=== PATIENT | male | born 1955 | race Caucasian/White ===

== ENCOUNTER 2023-08-13 15:55 | Inpatient (IN) | payer MEDICARE, OTHER, SELFPAY ==
[2023-08-13] VITALS (46 sets, daily range): BP systolic 65–121; BP diastolic 34–79; BMI 18.4
[2023-08-13 10:15] LABS: Glucose - Point of Care 118 mg/dl (70-99)
[2023-08-13 10:39] LABS: Hematocrit 23.3 % (39.0-52.0); Hemoglobin 7.6 g/dL (13.0-18.0); Mean Corp Hgb Conc. 32.6 g/dL (33.0-37.0); Mean Corpuscular Hgb 26.5 pg (27.0-31.0); Mean Corpuscular Volume 81.2 fL (80.0-94.0); Mean Platelet Volume 9.1 fL (7.4-10.4); Platelet Count 717 10^3/uL (130-400); Red Blood Cell Count 2.87 10^6/uL (4.70-6.10); White Blood Cell Count 12.8 10^3/uL (4.8-10.8)
[2023-08-13] MEDS: KEPPRA 1000 MG IV (11:17)
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
--- NOTE | 2023-08-13 12:33 | CON.NEURO4 ---
Consultation - Neurology 4
-
CONSULTING PHYSICIAN: Shiela Albert
REFERRING PHYSICIAN: ER
DICTATED BY: Shiela Albert
DATE/TIME OF REQUEST: 08/13/22
DATE/TIME OF CONSULTATION: 08/13/22
Reason for Consultation: 2 seizures
History of Present Illness:
Patient is a 68-year-old male with a past medical history of intellectual disability, schizophrenia, status post Bronwyn procedure after megacolon constipation presented hospital with 2 distinct episodes of new onset generalized seizure.
Patient had been at baseline health and mental status and was observed by staff at [facility] to have episode of transient generalized shaking associated with unconsciousness with eyes open which aborted spontaneously after few minutes. He
returned to baseline mental status and then had another seizure later in the morning of similar-appearing spontaneously aborted.
No history of seizures previously. CT head noncontrast in the ED was unremarkable. Blood glucose check at 118. Afebrile with no recent febrile illnesses. At baseline patient is communicative and carry on simple conversations. He was given one
1000 mg dose of IV Levetiracetam in the ED.
Home medication list includes haloperidol as well as valproic acid presumably for schizophrenia and mood stabilization.
Patient is awake and communicative denies any pain at this time, limited history due to intellectual disability.
Past Medical History: Schizophrenia, intellectual disability, GERD, GI bleed, bowel obstruction, constipation and megacolon requiring Bronwyn procedure
Surgical History: Bilateral brachial plexoplsty, Bronwyn procedure
Family History: Unknown
Social History: residential resident, no tobacco, alcohol, or recreational drugs
Review of Symptoms:
Unable to obtain with patient mental status
Physical Exam:
Middle-age man appears older than stated age appears chronically ill, no trauma to the head or neck, no tongue laceration is seen, eyes are clear, neck is supple with no meningismus no neck masses, heart rate regular, breathing unlabored, abdomen
soft nontender, no lower extremity edema or rashes seen, low muscle tone throughout.
Neurologic Examination:
Patient is awake and alert he tends to interact with the examiner, can answer some basic questions, moderate to severe intellectual disability is apparent, he obeys simple commands inconsistently, exclaims due to examiners cold hands and touching of
the feet.
Cranial nerve examination shows pupils 3 to 4 mm equal round reactive light bilaterally, resting gaze midline extraocular movements are normal, no ptosis, there is mild dysarthria, tongue is midline, smile symmetric.
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
Unobtainable reflexes throughout
Gait examination deferred
Neuro Imaging: CT head non contrast unremarkable
Impressions
1. 2 episodes of likely generalized tonic-clonic seizure today, concerning for new diagnosis of epilepsy. Antipsychotics may low seizure threshold but with 2 seizures and his history of intellectual disability I feel patient has a seizure
recurrence risk that is high enough to warrant a diagnosis of epilepsy and [facility] anti seizure medications.
2. History of schizophrenia, is on antipsychotic as well as valproic acid at baseline.
3. History of baseline intellectual disability
Recommendations:
1. This given 2 seizures and complicated medical history would err on the side of caution and observe him overnight.
2. Give valproic acid 500 mg once IV now, start on 500 mg p.o. valproic acid twice daily tonight
3. Check serum valproic acid level as he is on it at home presumably for either schizophrenia or mood stabilization
4. Check routine EEG tomorrow
5. Neurologic checks and seizure precautions
6. Basic blood work checking electrolytes including magnesium and calcium
7. No changes recommended to home antipsychotic regimen at this time
8. Would not require inpatient MRI brain which can be deferred to the outpatient setting
9. Will require outpatient neurology follow-up in approximately 4 to 6 weeks
Discussed patient care with: Dr Castro
[2023-08-13] MEDS: DEPACON 55 MG IV (13:28)
--- NOTE | 2023-08-13 13:39 | HPS.HSE ---
Addendum entered and electronically signed by Jens Lopez MD 08/13/23 20:43:
I spoke to the patient in the presence of patient's nurse about the fact that the patient needs blood; patient communicated that yes, he is okay with receiving blood; risks and benefits were explained and patient signed blood consent form, in the
presence of patient's nurse. Will recheck CBC now and if less than 7 the blood will need to be started.
Addendum entered and electronically signed by Jens Lopez MD 08/13/23 17:54:
I also ordered a CTA Abdomen Pelvis to check for active bleeding
Addendum entered and electronically signed by Jens Lopez MD 08/13/23 17:50:
Patient's repeat Hgb came back at 6.2. I ordered 1 unit PRBCs. BP is still low with SBP in the 80s (even after the IV fluid boluses), so Levophed also ordered. I consulted Colorectal Surgery given patient's recent abdominal surgery, and also
consulted Gastroenterology.
Addendum entered and electronically signed by Jens Lopez MD 08/13/23 17:24:
I also spoke (over the phone) to staff at [facility] and they said no family has come by to see the patient, and they don't have any way to touch base with the family.
Addendum entered and electronically signed by Jens Lopez MD 08/13/23 17:23:
I tried to reach patient's family - the current authorized contacts on the patient's chart - Odalis Roe and Gretel Willis - at the respective phone numbers that were listed however Odalis's listed number was busy/not working when I attempted to call
and when I called Gretel's number, I could not reach her as the person on the other end said Gretel is not available/does not work here anymore.
Patient is not able to give blood consent so if a repeat CBC shows Hgb less than 7 will need to order PRBCs.
Addendum entered and electronically signed by Jens Lopez MD 08/13/23 16:12:
Also ordered EKG, troponins, urinalysis with reflex to culture and CXR.
Original Note:
Family Physician
-
Family Physician: Igor Raza, DO
Chief Complaint
-
Seizure Episodes this Morning
History of Present Illness
68 y/o male with past medical history of urinary tract infection, severe constipation, fecal disimpaction, flexible sigmoidoscopy, open partial colectomy, end colostomy (Degroot's procedure after megacolon constipation) on 07/31/23, schizophrenia,
intellectual disability, chronic anemia, benign prostatic hyperplasia, nephrolithiasis and gastroesophageal reflux disease and bilateral brachial plexoplasty, presented after witnessed seizures x2 episodes at his assisted earlier this morning.
Patient had generalized shaking, along with unconsciousness. The seizures resolved spontaneously.
Patient was recently hospitalized from August 05, 2023 to August 06, 2023 after being admitted for stool leakage from his ostomy, at the nursing facility the ostomy bag apparently was not fully sealed, stool leaked all over the patient's abdomen,
after he was cleaned up, there was some erythema around his surgical site. He was started on intravenous Vancomycin, Levaquin, Flagyl, and ss per infectious disease patient was medically stable for discharge on 10 further days of Levaquin and
Flagyl.
Medical History
Past Medical History
Past Medical History: Reports Other (As per HPI above)
Past Surgical History: Reports Other (Marcin brachial plexoplasty. Bronwyn procedure.)
Social History
Tobacco: Non-smoker
Alcohol: None
Drug: None
Family History
Family History: Not pertinent
Allergies / Home Medications
Allergies reflects when Allergies were last updated in [facility].
Home Medications with original date entered in [facility]
Allergy/Medication List:
Allergies
Allergy/AdvReac Type Severity Reaction Status Date / Time
Carbapenems [Carbapenem] Allergy Unknown Verified 08/13/23 10:12
Cephalosporins Allergy Unknown - Verified 08/13/23 10:12
beta
lactams
Penicillins Allergy Unknown - Verified 08/13/23 10:12
beta
lactams
trifluoperazine HCl Allergy Unknown Verified 08/13/23 10:12
[From Stelazine]
Home Medications
bisacodyl 10 mg rectal suppository (OneLAX Bisacodyl) 10 mg AK DAILYPRN PRN constipation 10/01/17
acetaminophen 325 mg tablet 650 mg PO Q4HPRN PRN mild pain, fever>100 12/24/17
aluminum-mag hydroxide-simethicone 400 mg-400 mg-40 mg/5 mL oral susp (Maalox Maximum Strength) 10 ml PO [id number] PRN indigestion 06/20/22
famotidine 20 mg tablet 20 mg PO DAILY Gastrointestinal issue 06/20/22
lidocaine 4 % topical patch 1 patch topical DAILYPRN PRN to lower back for mild pain 06/20/22
magnesium hydroxide 400 mg/5 mL oral suspension (Milk of Magnesia) 30 ml PO DAILYPRN PRN constipation 06/20/22
sennosides 8.6 mg tablet (Senokot) 17.2 mg PO DAILYPRN PRN constipation 06/20/22
sodium phosphates 19 gram-7 gram/118 mL enema (Fleet Enema) 118 ml AK DAILYPRN PRN constipation 06/20/22
sorbitol 70 % solution 30 ml PO DAILYPRN PRN if no bm by 3rd day 06/20/22
gabapentin 300 mg capsule 300 mg PO Q12H Mental Health/Anxiety 01/08/23
haloperidol lactate 2 mg/mL oral concentrate 10 mg PO BID SCHIZOPHRENIA 01/08/23
ketoconazole 2 % topical cream 1 applic topical BID face 01/08/23
mirtazapine 15 mg tablet 15 mg PO HS Mental Health/Anxiety 01/08/23
sennosides 8.6 mg-docusate sodium 50 mg tablet (Senna-S) 2 tab-cap PO HS Constipation 01/08/23
zinc oxide 40 % topical ointment 1 applic topical BID sacrum 01/08/23
haloperidol lactate 5 mg/mL injection solution 10 mg IM [id number] PRN schizophrenia 06/01/23
ketoconazole 2 % shampoo 1 applic topical MOTH SCALP 06/01/23
pantoprazole 40 mg granules delayed-release for susp in packet 40 mg PO DAILY GERD 06/01/23
valproic acid (as sodium salt) 250 mg/5 mL oral solution 250 mg PO BID SCHIZOPHRENIA 06/01/23
haloperidol decanoate 50 mg/mL intramuscular solution 125 mg IM Q21D SCHIZOPHRENIA 07/28/23
sodium phosphates 19 gram-7 gram/118 mL enema (Fleet Enema) 118 ml AK FR Constipation 07/28/23
Lorazepam 0.5mg/0.5ml Gel 1 applic topical Q6HPRN PRN agitation 08/05/23
levofloxacin 500 mg tablet 500 mg PO DAILY 10 days #10 tabs 08/06/23
lorazepam 0.5 mg tablet 0.5 mg PO Q8HPRN PRN anxiety #3 tabs 08/06/23
lorazepam 1 mg tablet 1 mg PO BID #3 tabs 08/06/23
metronidazole 500 mg tablet 500 mg PO Q8H 08/13/23
polyethylene glycol 3350 17 gram oral powder packet (Miralax) 17 g PO DAILY 08/13/23
Review of Systems
-
Unable to obtain full review of systems at this time due to: Other (Poor historian, was not able to properly respond to Review of Systems questions)
Physical Exam
Vital Signs
Vital Signs
Temp Pulse Resp BP Pulse Ox
98.8 F 73 20 86/51 97
08/13/23 10:13 08/13/23 12:00 08/13/23 12:00 08/13/23 12:00 08/13/23 12:00
Physical Exam
General: No Apparent Distress and Appears Chronically Ill
HEENT: NormoCephalic
Respiratory: Clear
Cardiac: S1/S2 and Regular Rhythm
GI: Soft, Non Tender and Normal Bowel Sounds
Musculoskeletal: No Cyanosis
Skin: Warm and Dry
Neuro: Awake, Alert and Cranial Nerves Intact (except mild dysarthria, able to somewhat move arms legs, spasticity in the arms bilaterally)
Psych: Calm
Laboratory Results
-
08/13/23 10:30
Laboratory Results
Total Bilirubin Cancelled 08/13/23 10:30
AST Cancelled 08/13/23 10:30
ALT Cancelled 08/13/23 10:30
Alkaline Phosphatase Cancelled 08/13/23 10:30
Impression/Plan
-
Assessment/Plan
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
-Got Keppra load in the ER
-Continue Valproic Acid - increase the home valproic acid dose to a seizure prevention dose rather than add Keppra as a separate brand new med that could cause issues - Valproic acid will now be 500 mg BID and one 500 mg IV dose was given in the
emergency department
-Seizure precautions
-EEG
-Check BMP, Magnesium and Calcium plus Albumin
-Per neurology: patient does not need inpatient MRI brain which can be deferred to the outpatient setting and will need outpatient neurology follow-up in approximately 4 to 6 weeks
Hypotension
-IV fluid boluses, if still hypotensive then will need Levophed
-Check blood cultures, lactic acid
-Echo
-Recheck CBC and CMP
Recent stool leakage onto surgical site resulting in cellulitis
Multiple listed antibiotic allergies (PCN's, cephalosporins, carbapenems)
-Continue Levaquin and Flagyl through August 16, 2023 as per infectious disease note from August 06, 2023
-Recheck QTc on electrocardiogram
Chronic anemia
-Hgb lower than baseline (hgb initial this admission 7.6, last one from the last admission was 9.0)
-Check iron studies, Vitamin B12, folate
History of urinary tract infection
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
Schizophrenia - On Valproic Acid at home
Intellectual disability
Nephrolithiasis
Bilateral brachial plexoplasty
BPH
Nephrolithiasis
GERD
DVT Prophylaxis:
Code Status: Full Code
2 seizures prior to arrival needing treatment with seizure medications and hypotension needing monitoring in IMU is a high-risk encounter.
[2023-08-13] MEDS: NSS 1000 IV ×2 (15:30→16:00)
[2023-08-13 16:58] LABS: % Basophils 0.6 % (0-2); % Eosinophils 0.3 % (0-6); % Immature Granulocytes 0.5 % (0-0.5); % Lymphocytes 20.6 % (20.5-51.1); % Monocytes 11.3 % (1.7-9.3); % Neutrophils 66.7 % (42.2-75.2); Absolute Lymphocytes 1.4 10^3/uL (1.2-3.4); Absolute Monocytes 0.8 10^3/uL (0.1-0.6); Absolute Neutrophils 4.5 10^3/uL (1.4-6.5); Mean Corp Hgb Conc. 34.3 g/dL (33.0-37.0); Mean Corpuscular Hgb 26.8 pg (27.0-31.0); Mean Corpuscular Volume 78.2 fL (80.0-94.0); Mean Platelet Volume 8.6 fL (7.4-10.4); Nucleated Red Blood Cells % 0 % (-); Platelet Count 489 10^3/uL (130-400); Red Blood Cell Count 1.79 10^6/uL (4.70-6.10); Red Cell Dist. Width 16.4 % (11.5-14.5); White Blood Cell Count 6.7 10^3/uL (4.8-10.8)
[2023-08-13 17:07] LABS: Hemoglobin 4.8 g/dL (13.0-18.0); INR 1.34; PT 16.4 Sec (11.4-14.6)
[2023-08-13 17:13] LABS: Lactic Acid 0.8 mmol/L (0.7-2.0)
[2023-08-13 17:23] LABS: % Basophils 0.5 % (0-2); % Eosinophils 0.2 % (0-6); % Immature Granulocytes 0.4 % (0-0.5); % Lymphocytes 20.1 % (20.5-51.1); % Monocytes 11.4 % (1.7-9.3); % Neutrophils 67.4 % (42.2-75.2); Absolute Lymphocytes 1.6 10^3/uL (1.2-3.4); Absolute Monocytes 0.9 10^3/uL (0.1-0.6); Absolute Neutrophils 5.4 10^3/uL (1.4-6.5); Mean Corp Hgb Conc. 32.8 g/dL (33.0-37.0); Mean Corpuscular Hgb 26.3 pg (27.0-31.0); Mean Corpuscular Volume 80.1 fL (80.0-94.0); Mean Platelet Volume 8.4 fL (7.4-10.4); Nucleated Red Blood Cells % 0 % (-); Platelet Count 621 10^3/uL (130-400); Red Blood Cell Count 2.36 10^6/uL (4.70-6.10); Red Cell Dist. Width 16.6 % (11.5-14.5)
[2023-08-13 17:25] LABS: Troponin I 0.012 ng/ml
[2023-08-13 17:27] LABS: Hematocrit 18.9 % (39.0-52.0); Hemoglobin 6.2 g/dL (13.0-18.0)
[2023-08-13 17:29] LABS: ALT (SGPT) 13 U/L (0-50); AST (SGOT) 26 U/L (17-59); Albumin 2.1 g/dl (3.5-5.0); Alkaline Phosphatase 81 U/L (38-126); Blood Urea Nitrogen 24 mg/dl (9-20); Calcium 7.7 mg/dl (8.4-10.2); Carbon Dioxide 22 mmol/L (22-30); Chloride 108 mmol/L (98-107); Glucose 92 mg/dl (70-99); Magnesium 1.8 mg/dl (1.6-2.3); Potassium 3.6 mmol/L (3.5-5.1); Sodium 137 mmol/L (135-145); Total Bilirubin 0.4 mg/dl (0.2-1.3); Total Protein 5.3 g/dl (6.3-8.2); eGFR > 60.00
[2023-08-13 17:37] LABS: Urine Albumin Negative (Neg - Trace); Urine Bilirubin Negative (Negative); Urine Character Clear (Clear); Urine Color Yellow; Urine Glucose Negative (Negative); Urine Ketone Negative (Negative); Urine Leukocyte 1+ (Negative); Urine Nitrite Negative (Negative); Urine Occult Blood Negative (Negative); Urine Urobilinogen Negative (Neg - 1+)
[2023-08-13] MEDS: LEVOPHED 250 IV (17:42)
[2023-08-13 17:53] LABS: Urine Bacteria Few (Negative); Urine Squamous Cell 0-2 /LPF (Few)
[2023-08-13 17:54] LABS: Urine Red Blood Cell 0-2 /HPF (0-2)
--- NOTE | 2023-08-13 19:14 | PTCARENOTE ---
Received patient into room 3356 from ED approx 1830. Pt is awake with garbled speech, oriented x2, disoriented to time. Pt asking for apple juice and attempting to communicate. Answers simple questions. SR on monitor, however, patient having tremors
and appears as ST at those times. He is on RA. Pt received on Levophed @5mcg/min. MAP>65. Pt was st.cath'd in the ED. Skin intact except b/l shins with scabbed abrasions.
*Per ED RN - Patient ordered 1 unit of PRBCs, HOWEVER, unable to reach family to consent for blood. Consent arrived blank to floor.*
[2023-08-13] MEDS: ATIVAN 1 MG PO (19:16)
[2023-08-13] MEDS: DEPAKENE 500 MG PO (19:16)
[2023-08-13] MEDS: LEVAQUIN 500 MG PO (19:16)
[2023-08-13] MEDS: SENOKOT 17.1999999999999993 MG PO (19:17)
[2023-08-13 20:36] LABS: Creatine Phosphokinase 360 U/L (55-170)
--- NOTE | 2023-08-13 20:41 | CON.GS ---
Consultation
-
Date/Time Consultation Requested: 08/13/2023 @ 17:43
Date/Time Consultation Performed: 08/13/2023 @ 17:51
Requesting Provider: Jens Lopez MD
Performing Provider: Júnior Bains MD
Reason for Consultation: Anemia
Medical History
-
Chief Complaint: Anemia
History of Present Illness:
68-year-old male with schizophrenia who underwent a sigmoid resection and colostomy for severe chronic constipation causing compression of the right ureter on 07/28/[address] Li, who presents to the ER after he developed seizures earlier
today.� He has a history of chronic anemia and on his last discharge on 08/05/2023 his hemoglobin was 9.0 g/dL.� Today he was found to have a hemoglobin 7.6 and a repeat several hours later was 4.8 and on another repeat an hour later was 6.2.� He has
been hypotensive throughout the day with occasional episodes of tachycardia.� I was asked to see him for concern of intra-abdominal bleeding.� I came to the ED and he was being transported for a CT angio of the abdomen and pelvis.� He denies
abdominal pain and on exam he is soft and nontender.� There is a large amount of brown stool in the ostomy appliance.
Past Medical History
Past Medical History: GERD and Psychiatric (schizophrenia, intellectual disability; BPH, anemia, chronic constipation)
Past Surgical History: Bowel Resection (as per the HPI) and Other
Social History
Tobacco: Non-Smoker
Alcohol: None
Living: [facility]
Family History
Family History: Unable to Obtain
Allergies / Home Medications
Allergy/AdvReac Type Severity Reaction Status Date / Time
Carbapenems [Carbapenem] Allergy Unknown Verified 08/13/23 10:12
Cephalosporins Allergy Unknown - Verified 08/13/23 10:12
beta
lactams
Penicillins Allergy Unknown - Verified 08/13/23 10:12
beta
lactams
trifluoperazine HCl Allergy Unknown Verified 08/13/23 10:12
[From Stelazine]
Medication Instructions Recorded Confirmed Type
bisacodyl 10 mg rectal suppository 10 mg [place] DAILYPRN PRN constipation 10/01/17 08/13/23 Rx
(OneLAX Bisacodyl)
acetaminophen 325 mg tablet 650 mg PO Q4HPRN PRN mild pain, 12/24/17 08/13/23 History
fever>100
aluminum-mag hydroxide-simethicone 10 ml PO [id number] PRN indigestion 06/20/22 08/13/23 History
400 mg-400 mg-40 mg/5 mL oral susp
(Maalox Maximum Strength)
famotidine 20 mg tablet 20 mg PO DAILY Gastrointestinal 06/20/22 08/13/23 History
issue
lidocaine 4 % topical patch 1 patch topical DAILYPRN PRN to 06/20/22 08/13/23 History
lower back for mild pain
magnesium hydroxide 400 mg/5 mL 30 ml PO DAILYPRN PRN constipation 06/20/22 08/13/23 History
oral suspension (Milk of Magnesia)
sennosides 8.6 mg tablet (Senokot) 17.2 mg PO DAILYPRN PRN 06/20/22 08/13/23 History
constipation
sodium phosphates 19 gram-7 118 ml [place] DAILYPRN PRN constipation 06/20/22 08/13/23 History
gram/118 mL enema (Fleet Enema)
sorbitol 70 % solution 30 ml PO DAILYPRN PRN if no bm by 06/20/22 08/13/23 History
3rd day
gabapentin 300 mg capsule 300 mg PO Q12H Mental 01/08/23 08/13/23 History
Health/Anxiety
haloperidol lactate 2 mg/mL oral 10 mg PO BID SCHIZOPHRENIA 01/08/23 08/13/23 History
concentrate
ketoconazole 2 % topical cream 1 applic topical BID face 01/08/23 08/13/23 History
mirtazapine 15 mg tablet 15 mg PO HS Mental Health/Anxiety 01/08/23 08/13/23 History
sennosides 8.6 mg-docusate sodium 2 tab-cap PO HS Constipation 01/08/23 08/13/23 History
50 mg tablet (Senna-S)
zinc oxide 40 % topical ointment 1 applic topical BID sacrum 01/08/23 08/13/23 History
haloperidol lactate 5 mg/mL 10 mg IM [id number] PRN schizophrenia 06/01/23 08/13/23 History
injection solution
ketoconazole 2 % shampoo 1 applic topical MOTH SCALP 06/01/23 08/13/23 History
pantoprazole 40 mg granules 40 mg PO DAILY GERD 06/01/23 08/13/23 History
delayed-release for susp in packet
valproic acid (as sodium salt) 250 250 mg PO BID SCHIZOPHRENIA 06/01/23 08/13/23 History
mg/5 mL oral solution
haloperidol decanoate 50 mg/mL 125 mg IM Q21D SCHIZOPHRENIA 07/28/23 08/13/23 History
intramuscular solution
sodium phosphates 19 gram-7 118 ml NY FR Constipation 07/28/23 08/13/23 History
gram/118 mL enema (Fleet Enema)
Lorazepam 0.5mg/0.5ml Gel 1 applic topical Q6HPRN PRN 08/05/23 08/13/23 History
agitation
levofloxacin 500 mg tablet 500 mg PO DAILY 10 days #10 tabs 08/06/23 08/13/23 Rx
lorazepam 0.5 mg tablet 0.5 mg PO Q8HPRN PRN anxiety #3 08/06/23 08/13/23 Rx
tabs
lorazepam 1 mg tablet 1 mg PO BID #3 tabs 08/06/23 08/13/23 Rx
metronidazole 500 mg tablet 500 mg PO Q8H 08/13/23 08/13/23 History
polyethylene glycol 3350 17 gram 17 g PO DAILY 08/13/23 08/13/23 History
oral powder packet (Miralax)
Review of Systems
-
Unable to obtain full review of systems at this time due to: Other
Physical Exam
Vital Signs
Temp Pulse Resp BP Pulse Ox
98.7 F 69 19 96/65 95
08/13/23 19:54 08/13/23 18:45 08/13/23 18:45 08/13/23 18:39 08/13/23 18:45
08/12/23 08/13/23 08/14/23
06:59 06:59 06:59
Actual Weight 53.2 kg
Body Mass Index (BMI) 18.4
Lab Results
08/13/23 16:16
WBC 8.0 10^3/uL (4.8-10.8) 08/13/23 17:15
Hgb 6.2 g/dL (13.0-18.0) L* D 08/13/23 17:15
Hct 18.9 % (39.0-52.0) L* 08/13/23 17:15
Plt Count 621 10^3/uL (130-400) H D 08/13/23 17:15
Abs Immat Gran (auto) 0.0 10^3/uL (0-0.05) 08/13/23 17:15
Neutrophils % 67.4 % (42.2-75.2) 08/13/23 17:15
Physical Exam
General: No Apparent Distress
HEENT: Anicteric
GI: Soft, Non Tender, Non Distended and Other (the ostomy is functioning with a large amount of brown stool)
Neuro: Awake and Alert
Data Reviewed
-
CT Scan: Image Personally Visualized and interpreted and Report Reviewed by me
Labs: Labs Reviewed by me
Assessment / Plan
-
Anemia (acute on chronic).� There is no evidence of active bleeding on the CT angio and his abdominal exam is benign.� The hydronephrosis has improved but there is still a moderate amount of stool in the rectal stump.� The source of the anemia is
unclear but I agree with transfusion and monitoring.� Recommend enemas once the acute process has resolved.� Will follow as needed.
[2023-08-13 21:02] LABS: % Basophils 0.7 % (0-2); % Eosinophils 0.4 % (0-6); % Immature Granulocytes 0.5 % (0-0.5); % Lymphocytes 22.8 % (20.5-51.1); % Monocytes 11.6 % (1.7-9.3); Absolute Basophils 0.1 10^3/uL (0-0.2); Absolute Lymphocytes 1.7 10^3/uL (1.2-3.4); Absolute Monocytes 0.9 10^3/uL (0.1-0.6); Absolute Neutrophils 4.7 10^3/uL (1.4-6.5); Hematocrit 19.4 % (39.0-52.0); Mean Corpuscular Hgb 27.2 pg (27.0-31.0); Mean Corpuscular Volume 79.8 fL (80.0-94.0); Mean Platelet Volume 8.4 fL (7.4-10.4); Nucleated Red Blood Cells % 0 % (-); Platelet Count 676 10^3/uL (130-400); Red Blood Cell Count 2.43 10^6/uL (4.70-6.10); Red Cell Dist. Width 16.4 % (11.5-14.5); White Blood Cell Count 7.3 10^3/uL (4.8-10.8)
[2023-08-13 21:04] LABS: Hemoglobin 6.6 g/dL (13.0-18.0)
[2023-08-13 21:27] LABS: Troponin I < 0.012 ng/ml
[2023-08-13] MEDS: FLAGYL 500 MG PO (21:27)
[2023-08-13] MEDS: SENOKOT-S 1 TABLET PO (21:27)
[2023-08-13] MEDS: REMERON 15 MG PO (21:27)
[2023-08-13] MEDS: HALDOL CONCENTRATE 10 MG PO (21:27)
[2023-08-13] MEDS: NEURONTIN 300 MG PO (21:27)
[2023-08-13] MEDS: NIZORAL 2% CREAM 1 APPLIC TOPICAL (21:28)
[2023-08-13] MEDS: DESITIN MAXIMUM STRENGTH PASTE 1 APPLIC TOPICAL (21:29)
--- NOTE | 2023-08-13 21:44 | PTCARENOTE ---
ax2 garbled speech sinus pvc's70's afebrile - levo gtt at 5 mcg for map of 65. prbc's transfusing. . colostomy intact with thick brown output- will try to hemetest
--- NOTE | 2023-08-13 21:51 | PTCARENOTE ---
hemetest is negative
--- NOTE | 2023-08-13 23:49 | PTCARENOTE ---
prbc's finished transfusing. no signs of reaction. levo being weaned down . currently at 3mcg/min
[2023-08-14] VITALS (49 sets, daily range): BP systolic 70–136; BP diastolic 50–119; BMI 18.4
--- NOTE | 2023-08-14 05:08 | PTCARENOTE ---
remains on levo- - inc of large amount of urine x3 afebrile sinus-
[2023-08-14 05:46] LABS: Hematocrit 23.6 % (39.0-52.0); Hemoglobin 7.7 g/dL (13.0-18.0); Mean Corp Hgb Conc. 32.6 g/dL (33.0-37.0); Mean Corpuscular Volume 82.8 fL (80.0-94.0); Mean Platelet Volume 8.9 fL (7.4-10.4); Platelet Count 688 10^3/uL (130-400); Red Blood Cell Count 2.85 10^6/uL (4.70-6.10); Red Cell Dist. Width 16.2 % (11.5-14.5); White Blood Cell Count 7.1 10^3/uL (4.8-10.8)
[2023-08-14 06:10] LABS: ALT (SGPT) 12 U/L (0-50); AST (SGOT) 23 U/L (17-59); Albumin 2.1 g/dl (3.5-5.0); Alkaline Phosphatase 79 U/L (38-126); Blood Urea Nitrogen 18 mg/dl (9-20); Calcium 7.9 mg/dl (8.4-10.2); Carbon Dioxide 24 mmol/L (22-30); Chloride 111 mmol/L (98-107); Estimated Creatinine Clearance 60 ml/min; Glucose 88 mg/dl (70-99); Magnesium 1.9 mg/dl (1.6-2.3); Potassium 3.5 mmol/L (3.5-5.1); Sodium 143 mmol/L (135-145); Total Bilirubin 0.4 mg/dl (0.2-1.3); Total Protein 5.4 g/dl (6.3-8.2); eGFR > 60.00
[2023-08-14 06:12] LABS: Troponin I < 0.012 ng/ml
--- NOTE | 2023-08-14 06:52 | W.PN.NEURO.1 ---
Addendum entered and electronically signed by Robert Albert MD 08/14/23 14:17:
Patient not agreeable and refuses EEG testing twice now. Will cancel study. May reattempt as outpatient, EEG would be ideal but would not change decision that I think he needs penitentiary seizure medication.
Original Note:
Today's Communication / Plan
-
-Attempt routine EEG, although this is not essential to obtain as inpatient and would not sedate patient for this study as it may effect the study
-Continue increased dose of Valproic acid 500 mg BID
-Not need for inpatient MRI brain
-Seizure precautions
-Follow basic metabolic bloodwork
-Will need neurology outpatient following
-No changes recommend to home medications other than the increase in valproic acid
Neuro Assessment/Plan
Assessment
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
CT head non contrast no acute abnormalities
With 2 seizures, history intellectual disability, likely a significantly elevated risk of further seizures to warrant chronic anti seizure medication and diagnosis of epilepsy
Valproic acid appears to be for mood stabilization, level of 21
Subjective/Objective
Subjective Data
Date of Service: August 14, 2023
No acute events, some agitation prohibiting EEG, patient awake and alert conversational with me
Objective Data
Vital Signs
Temp Pulse Resp BP Pulse Ox
97.8 F 73 15 111/93 95
08/14/23 05:54 08/14/23 06:30 08/14/23 06:30 08/14/23 06:30 08/14/23 05:30
Lab Results
08/14/23 04:33
08/14/23 04:33
PT 16.4 Sec (11.4-14.6) H 08/13/23 16:16
INR 1.34 08/13/23 16:16
Sodium 143 mmol/L (135-145) 08/14/23 04:33
Potassium 3.5 mmol/L (3.5-5.1) 08/14/23 04:33
BUN 18 mg/dl (9-20) 08/14/23 04:33
Glucose 88 mg/dl (70-99) 08/14/23 04:33
Calcium 7.9 mg/dl (8.4-10.2) L 08/14/23 04:33
Patient Allergies
Carbapenems [Carbapenem] Allergy (Verified 08/13/23 10:12)
Unknown
Cephalosporins Allergy (Verified 08/13/23 10:12)
Unknown - beta lactams
Penicillins Allergy (Verified 08/13/23 10:12)
Unknown - beta lactams
trifluoperazine HCl [From Stelazine] Allergy (Verified 08/13/23 10:12)
Unknown
Review of Systems
-
History Source: Patient
All other systems: Reviewed and negative
Constitutional: No Symptoms
EENT: No Symptoms Reported
Respiratory: No Symptoms
Cardiac: No Symptoms
Abdomen/GI: No Symptoms
Genitourinary: No Symptoms
Musculoskeletal: No Symptoms
Skin: No Symptoms
Neuro: See existing Neuro Note
Endocrine: No Symptoms
Hematologic / Lymphatic: No Symptoms
Allergy / Immunology: No Symptoms
Physical Exam
-
General: No Apparent Distress
Eyes: No Ptosis
HEENT: Normocephalic; Negative Moist Mucous Membranes
Neck: Full Range of Motion
Respiratory: No Dyspnea; Negative Wheezes
Cardiac: No Murmur
GI: Soft and Non-tender
Skin: Warm and Dry
Extremities: No Edema
Psych: Confused and Agitated
Extended Neurological Exam
Attention Span & Concentration: Awake, Alert, Interactive and Other (Intellectual disability apparent, irritable, obeys simple commands)
Memory: Reduced
Tremor: Hand Tremor Absent
Involuntary Movement: None
Speech: Dysarthric; Negative Expressive Aphasia or Receptive Aphasia
Cranial Nerve II: Left Eye: Pupillary Reactivity Unremarkable and Pupillary Size Unremarkable
Cranial Nerve II: Right Eye: Pupillary Reactivity Unremarkable and Pupillary Size Unremarkable
Cranial Nerves III, IV, : Extraocular Movement: Extraocular Movement Full in all Directions
Muscle Strength, Overall: Full Throughout
Muscle Bulk & Tone: Bulk Unremarkable
Deep Tendon Reflexes: Trace Throughout
Modified Shahzad Score (MRS)
-
MRS Score:
Data Reviewed
-
CT Head: Report Reviewed and Image Reviewed
EEG: Pending
[2023-08-14] MEDS: NEURONTIN 300 MG PO ×2 (07:38→20:58)
[2023-08-14] MEDS: LEVAQUIN 500 MG PO (07:38)
[2023-08-14] MEDS: HALDOL CONCENTRATE 10 MG PO (07:38)
[2023-08-14] MEDS: DEPAKENE 500 MG PO ×2 (07:38→20:58)
[2023-08-14] MEDS: ATIVAN 1 MG PO ×2 (07:39→20:58)
[2023-08-14] MEDS: PROTONIX 40 MG PO (07:39)
[2023-08-14] MEDS: FLAGYL 500 MG PO ×3 (07:39→20:58)
[2023-08-14] MEDS: NIZORAL SHAMPOO 120 ML TOPICAL (07:40)
[2023-08-14] MEDS: PEPCID 20 MG PO (07:40)
--- NOTE | 2023-08-14 07:40 | PTCARENOTE ---
Pt agitated , gievn meds and apple juice. will not take Depakene, Called for a med sitter non available
[2023-08-14 08:13] LABS: Iron 55 ug/dl (49-181)
[2023-08-14 08:23] LABS: Percent Saturation 31 % (20-50); Total Iron Binding Capacity 176 ug/dl (261-462)
--- NOTE | 2023-08-14 08:48 | PTCARENOTE ---
Surgeon here. Stool coming out of colostomy thick hard stool. Colostomy changed wound cleansed . New colostomy bag in place
--- NOTE | 2023-08-14 09:24 | CON.GI ---
Addendum entered and electronically signed by Mirella Blanco MD 08/14/23 12:25:
I saw and examined the patient.
The STEAM AND POWER SUPERINTENDENT's note was reviewed and I agree with the note.
Comment: This is a 68-year-old male with a history of schizophrenia who lives in a assisted and also has a history of severe constipation who had an admission in July due to severe fecal impaction was evaluated by surgery had disimpaction and
partial colectomy and end colostomy with Argueta's pouch on 07/31/2023. He was in the hospital again on the with cellulitis around the ostomy from stool leakage and was treated with antibiotics now presents with seizures and is undergoing
workup for this. We were consulted for acute drop in hemoglobin to 4.8 but a repeat hemoglobin even prior to transfusion was 6.2 he had an emergent CTA which was negative for active bleeding no evidence of stricture at anastomosis noted still has
residual stool but much improved from prior CT. He now also has hypotension and has been started on Levophed. Patient is a very poor historian and unable to provide much history he is also very drowsy.
Assessment and plan anemia most likely related to dilution, recent surgery, AOCD and the 4.8 is likely a lab error since repeat without transfusion was 6.2 his hemoglobin is now stable after transfusion of 1 unit of packed red blood cells but he
does have hypotension and is undergoing workup for this including ruling out sepsis, is currently on pressors but he has no signs of active GI bleeding. the ostomy site looks good and the stool was brown he was also heme-negative. Iron studies were
also unremarkable
2 he does have a history of colon polyps and he had a large ascending colon polyp for which he was referred to [facility] to Dr. Shaw for polypectomy unclear if patient followed up will try and obtain records and if he has not already followed up
then he will need to schedule this as outpatient.
3 history of severe constipation with fecal impaction as described above requiring partial colectomy with colostomy with Argueta's. Continue bowel regimen, I increased his MiraLAX and Senokot to twice daily.
Will sign off and will be available as needed
Original Note:
Consultation
-
Date/Time Consultation Requested: 08/13/231747
Date/Time Consultation Performed: 08/14/23 5472
Requesting Provider: Jens Lopez MD
Performing Provider: ELIAS Aguero, Mirella Blanco MD
Reason for Consultation: anemia
Medical History
Chief Complaint / HPI
Chief Complaint: seizure on admssion and noted hypotension
History of Present Illness:
Pt is a 68yo with hx schizophrenia, UTI's, chronic constipation with recent admission 07/28 with severe constipation due to severe stool impaction. Due to marked enlargement of stool burden and extension in upper abdomen with compression of liver
and displacement of bladder with severe hydro(with MICHAEL on admission)pt had fecal disimpaction flex sig open partial colectomy and end colostomy with argueta's pouch 07/31/23. Pt was discharged and returned 08/05- 08/06 with stool leakage and
celluitis. He now returns again after witnessed seizure. On admission noted with drop in hbg with baseline 7-8 during surgery to drop to 4.8 though repeat 1 hour later 6.2. CTA was completed with no active bleeding and residual large rectal stool
burden. After admission he was also noted with hypotension requiring pressors.
Pt with limited history due to schizophrenia. Per nursing staff noted today with large stool passed via ostomy with pasty brown stool. Last colonoscopy 05/[address] Ortiz with fair prep, looping of colon , multiple TA polyps with retained
25-30mm polyp AC. Pt was recommended follow up with Dr. Shaw at [facility] for double balloon and polyp removal.
Past Medical History
Past Medical History: GERD, Psychiatric (schizophrenia, intellectual disability) and Other (chronic constipation, anemia, BPH, recurrent UTI)
Social History
Tobacco: Other (pt unable to provide non smoker per last eval)
Alcohol: Other (pt unable to provide none per last eval)
Drug: Other (pt unable to provide none per last eval)
Personal: Single
Living: Long-Term
Employment: Disabled
Family History
Family History: Unable to Obtain
Allergies / Home Medications
Allergy/AdvReac Type Severity Reaction Status Date / Time
Carbapenems [Carbapenem] Allergy Unknown Verified 08/13/23 10:12
Cephalosporins Allergy Unknown - Verified 08/13/23 10:12
beta
lactams
Penicillins Allergy Unknown - Verified 08/13/23 10:12
beta
lactams
trifluoperazine HCl Allergy Unknown Verified 08/13/23 10:12
[From Stelazine]
Medication Instructions Recorded
bisacodyl 10 mg rectal suppository 10 mg [place] DAILYPRN PRN constipation 10/01/17
(OneLAX Bisacodyl)
acetaminophen 325 mg tablet 650 mg PO Q4HPRN PRN mild pain, 12/24/17
fever>100
aluminum-mag hydroxide-simethicone 10 ml PO [id number] PRN indigestion 06/20/22
400 mg-400 mg-40 mg/5 mL oral susp
(Maalox Maximum Strength)
famotidine 20 mg tablet 20 mg PO DAILY Gastrointestinal 06/20/22
issue
lidocaine 4 % topical patch 1 patch topical DAILYPRN PRN to 06/20/22
lower back for mild pain
magnesium hydroxide 400 mg/5 mL 30 ml PO DAILYPRN PRN constipation 06/20/22
oral suspension (Milk of Magnesia)
sennosides 8.6 mg tablet (Senokot) 17.2 mg PO DAILYPRN PRN 06/20/22
constipation
sodium phosphates 19 gram-7 118 ml [place] DAILYPRN PRN constipation 06/20/22
gram/118 mL enema (Fleet Enema)
sorbitol 70 % solution 30 ml PO DAILYPRN PRN if no bm by 06/20/22
3rd day
gabapentin 300 mg capsule 300 mg PO Q12H Mental 01/08/23
Health/Anxiety
haloperidol lactate 2 mg/mL oral 10 mg PO BID SCHIZOPHRENIA 01/08/23
concentrate
ketoconazole 2 % topical cream 1 applic topical BID face 01/08/23
mirtazapine 15 mg tablet 15 mg PO HS Mental Health/Anxiety 01/08/23
sennosides 8.6 mg-docusate sodium 2 tab-cap PO HS Constipation 01/08/23
50 mg tablet (Senna-S)
zinc oxide 40 % topical ointment 1 applic topical BID sacrum 01/08/23
haloperidol lactate 5 mg/mL 10 mg IM [id number] PRN schizophrenia 06/01/23
injection solution
ketoconazole 2 % shampoo 1 applic topical MOTH SCALP 06/01/23
pantoprazole 40 mg granules 40 mg PO DAILY GERD 06/01/23
delayed-release for susp in packet
valproic acid (as sodium salt) 250 250 mg PO BID SCHIZOPHRENIA 06/01/23
mg/5 mL oral solution
haloperidol decanoate 50 mg/mL 125 mg IM Q21D SCHIZOPHRENIA 07/28/23
intramuscular solution
sodium phosphates 19 gram-7 118 ml NV FR Constipation 07/28/23
gram/118 mL enema (Fleet Enema)
Lorazepam 0.5mg/0.5ml Gel 1 applic topical Q6HPRN PRN 08/05/23
agitation
levofloxacin 500 mg tablet 500 mg PO DAILY 10 days #10 tabs 08/06/23
lorazepam 0.5 mg tablet 0.5 mg PO Q8HPRN PRN anxiety #3 08/06/23
tabs
lorazepam 1 mg tablet 1 mg PO BID #3 tabs 08/06/23
metronidazole 500 mg tablet 500 mg PO Q8H 08/13/23
polyethylene glycol 3350 17 gram 17 g PO DAILY 08/13/23
oral powder packet (Miralax)
Review of Systems
-
Unable to obtain full review of systems at this time due to: Other (limited verbal drifts off in conversation)
History Source: Patient and Other (nursing staff)
Constitutional: Reports No Symptoms
EENT: Reports No Symptoms
Respiratory: Reports No Symptoms
Cardiac: Reports No Symptoms
Abdomen/GI: Reports No Symptoms
: Reports No Symptoms
Neurological: Reports Weakness
Endocrine: Reports No Symptoms
Hematologic/Lymphatic: Reports No Symptoms
Vital Signs
Temp Pulse Resp BP Pulse Ox
97.8 F 73 15 111/93 95
08/14/23 05:54 08/14/23 06:30 08/14/23 06:30 08/14/23 06:30 08/14/23 05:30
Physical Exam
Exam
General: Other (pt awakens with occasional answering questions but drift off in conversation)
HEENT: Normocephalic and Anicteric
Respiratory: Clear
Cardiac: Regular Rhythm
GI: Soft, Non Tender, Non Distended and Other (stoma pink -- per staff recent large stool burden brown pasty stool)
Musculoskeletal: No Clubbing and No Cyanosis
Skin: Warm and Dry
Neuro: Awake and Other (drift off with minimal conversation)
Psych: Agitated (at times per staff)
Results
WBC 7.1 10^3/uL (4.8-10.8) 08/14/23 04:33
Hgb 7.7 g/dL (13.0-18.0) L 08/14/23 04:33
Hct 23.6 % (39.0-52.0) L 08/14/23 04:33
MCV 82.8 fL (80.0-94.0) 08/14/23 04:33
Plt Count 688 10^3/uL (130-400) H 08/14/23 04:33
Absolute Neuts (auto) 4.7 10^3/uL (1.4-6.5) 08/13/23 20:54
PT 16.4 Sec (11.4-14.6) H 08/13/23 16:16
INR 1.34 08/13/23 16:16
Sodium 143 mmol/L (135-145) 08/14/23 04:33
Potassium 3.5 mmol/L (3.5-5.1) 08/14/23 04:33
Chloride 111 mmol/L (98-107) H 08/14/23 04:33
Carbon Dioxide 24 mmol/L (22-30) 08/14/23 04:33
BUN 18 mg/dl (9-20) 08/14/23 04:33
Creatinine 0.9 mg/dL (0.7-1.3) 08/14/23 04:33
Calcium 7.9 mg/dl (8.4-10.2) L 08/14/23 04:33
Total Bilirubin 0.4 mg/dl (0.2-1.3) 08/14/23 04:33
AST 23 U/L (17-59) 08/14/23 04:33
ALT 12 U/L (0-50) 08/14/23 04:33
Alkaline Phosphatase 79 U/L (38-126) 08/14/23 04:33
Diagnostic Image Results:
1. No evidence for active GI bleed. No abdominal aortic aneurysm or dissection.
2. Status post partial colectomy change with left lower quadrant colostomy noted. Large rectal stool bolus. Moderate diffuse colonic stool burden, significantly improved from prior.
3. Residual mild diffuse right hydroureteronephrosis, improved.
Prior GI Procedures:
EGD:� 05/2020 Dr Hamilton �Z-line irregular, 38 cm from the incisors.
�� � � � � � � � � � � - Normal esophagus.
�� � � � � � � � � � � - Erythematous mucosa in the gastric body. Biopsied.
�� � � � � � � � � � � - Bilious gastric fluid.
�� � � � � � � � � � � - Normal duodenal bulb and second portion of the
�� � � � � � � � � � � duodenum.
Colonoscopy:� 05/2022 Dr Ortiz �- Preparation of the colon was fair. He has never had
�� � � � � � � � � � � a good prep. This is after a multiple day prep and
�� � � � � � � � � � � while on daily Amitiza, Miralax and dulcolax.
�� � � � � � � � � � � - There was significant looping of the colon requiring
�� � � � � � � � � � � adult scope, binder, and abdominal pressure.
�� � � � � � � � � � � - Three 4 to 10 mm polyps in the descending colon and
�� � � � � � � � � � � at the hepatic flexure, removed with a cold snare.
�� � � � � � � � � � � Resected and retrieved.
�� � � � � � � � � � � - Four 8 to 12 mm polyps in the ascending colon,
�� � � � � � � � � � � removed with a cold snare. Resected and retrieved.
�� � � � � � � � � � � - One 25-30 mm polyp in the ascending colon. Biopsied,
�� � � � � � � � � � � but not removed.
Assessment / Plan
-
Pt is a 68yo with hx schizophrenia, UTI's, chronic constipation with recent admission 07/28 with severe constipation due to severe stool impaction. Due to marked enlargement of stool burden and extension in upper abdomen with compression of liver
and displacement of bladder with severe hydro(with MICHAEL on admission)pt had fecal disimpaction flex sig open partial colectomy and end colostomy with argueta's pouch 07/31/23. Pt was discharged and returned 08/05- 08/06 with stool leakage and
cellulitis. He now returns again after witnessed seizure. On admission noted with drop in hbg with baseline 7-8 during surgery to drop to 4.8 though repeat 1 hour later 6.2. CTA was completed with no active bleeding and residual large rectal
stool burden. After admission he was also noted with hypotension requiring pressors. Last colonoscopy 05/[address] Ortiz with fair prep, looping of colon , multiple TA polyps with retained 25-30mm polyp AC. Pt was recommended follow up with
Dr. Shaw at [facility] for double balloon and polyp removal.
-hypotension requiring pressors
-anemia
-seizure prior to admission
-recent severe constipation/impaction with extension to upper abd with hydro s/p colectomy with end colostomy with argueta's pouch
-recent cellulitis with stoma
other medical problems:
-hx colon polyps with ? retained polyp
-schizophrenia
-UTI's
-chronic constipation
-recent MICHAEL and hydro now improving
PLAN:
etiology of anemia possible dilution with baseline 8-9 then 4.8 but up to 6.2 without transfusion vs other
pt also with marked hypotension on admission requiring pressors
no signs of active GI bleeding as brown stool this am
continue work up for hypotension -urine and blood cx pending
trend hbg -- iron studies, B12/folate stable but only able to complete post transfusion
will try to obtain records from [facility] with hx retained polyp-- unclear if resected in past
I left message at [facility] to review dosing timing of SQ haloperidol decanoate dosing (as hypotension listed as side effect) and check if any prior [facility] follow up
neuro following seizure on admission with some medication changes
-
-
-
Thank you for consultation and allowing me to participate in the patient's care. Please call the front office attendant GI physician during the after hours with any questions or concerns.
[2023-08-14 09:34] LABS: Folate 12.5 ng/ml (2.76-20); Vitamin B12 448 pg/ml (239-931)
[2023-08-14] MEDS: MIRALAX 17 GRAMS PO ×2 (09:48→20:57)
[2023-08-14] MEDS: DESITIN MAXIMUM STRENGTH PASTE 1 APPLIC TOPICAL ×2 (09:48→20:58)
[2023-08-14] MEDS: NIZORAL 2% CREAM 1 APPLIC TOPICAL ×2 (09:49→21:00)
--- NOTE | 2023-08-14 09:54 | W.PN.GS2 ---
Today's Communication / Plan
-
Colace, MiraLAX, tapwater enemas scheduled daily.
Ostomy care.
Assessment / Plan
-
This is a 68-year-old male status post open sigmoidectomy and Bronwyn's procedure for severe chronic constipation on 07/28/2023 who presents with anemia of unclear etiology. No history of GI bleed, and Hemoccult reported negative. CTA reviewed, no
sign of GI bleed or intra-abdominal abscess. There is a significant residual stool burden in the rectal stump which is fairly concerning.
Let them recommend bowel regimen from above: Colace and MiraLAX daily, milk of magnesia as needed
Recommend daily tapwater enema x 3d to help flush out his rectal vault.
Routine ostomy care.
No acute surgical intervention warranted at this time. General surgery will follow peripherally. Please call with any questions or concerns
Time Spent
Total Time Spent with Patient (in minutes): 20
Subjective Data
-
Date of Service: August 14, 2023
Interval Events:
No acute events overnight. Bedside nurse reported patient was 'combative', though he appeared fairly pleasant in the room. He is awake, alert but oriented to self only. Denies any active pain. I did assist the nurse with providing his morning
meds with a little bit of apple juice which he took without too much protest.
Objective Data
-
Intake and Output
08/13/23 08/14/23 08/15/23
06:59 06:59 06:59
Intake Total 250 / 250
Balance 250 / 250
Intake:
Blood Product Amount Infused ( 250 / 250
mL)
Packed Rbc Leukoreduced Unit 250 / 250
[id number]
Other:
How many times incontinent 3
SATURATED amount urine
Vital Signs
Temp Pulse Resp BP Pulse Ox
97.8 F 73 15 111/93 95
02/05/24 05:54 08/14/23 06:30 08/14/23 06:30 08/14/23 06:30 08/14/23 05:30
Lab Results
08/14/23 04:33
08/14/23 04:33
Calcium 7.9 mg/dl (8.4-10.2) L 08/14/23 04:33
Magnesium 1.9 mg/dl (1.6-2.3) 08/14/23 04:33
Total Bilirubin 0.4 mg/dl (0.2-1.3) 08/14/23 04:33
AST 23 U/L (17-59) 08/14/23 04:33
ALT 12 U/L (0-50) 08/14/23 04:33
Alkaline Phosphatase 79 U/L (38-126) 08/14/23 04:33
Total Protein 5.4 g/dl (6.3-8.2) L 08/14/23 04:33
Albumin 2.1 g/dl (3.5-5.0) L 08/14/23 04:33
Physical Exam
-
GENERAL/NEURO: Awake, Alert, no distress, thin/cachectic
CHEST: Unlabored breathing on RA
ABDOMEN: Soft, Non-Tender, Non-Distended, stoma bag dislodged, copious amount of solid stool on his abdomen and in the bag.
--- NOTE | 2023-08-14 10:50 | WOUNDNOTE ---
WON RN note: Patient admitted with new seizures from [facility]
See H&P for complete history. 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 Bains.
PMH: Mental retardation;schizophrenia, UTI, GI bleed, bowel obstruction, COPD, B/L arm Brachial Plexoplasty.
Ostomy location and type: Degroot's-Colostomy stoma pink, budded, periwound intact. Nurse Yoshi said one piece appliance leaked stool all over himself this morning. Nurse changed appliance with what was available, 2 1/4' wafer and urostomy pouch.
Called SPD for Colostomy 2 1/4' pouch to match wafer. RN aware she can change just pouch when supplies arrive. Midline old surgical incision with dry dressing, incision clean dry and intact. Sacrum intact, mild MASD per nurse. Legs with chronic
scattered scabs, no drainage.
Change appliance q 3-4 days and as needed, using Rhea wafer # [id number] Rhea pouch # [id number]. Supplies ordered earlier and at bedside. Patient not a candidate for extensive teaching due to history.
Nursing care plan updated, will follow as needed.
[2023-08-14] MEDS: LEVOPHED 250 IV ×2 (12:36→23:32)
--- NOTE | 2023-08-14 14:09 | PTOTSP ---
Speech Therapy Initial Swallow Evaluation
Moderate oral dysphagia; ineffective mastication of soft/bite-size solids, swallowing chewable solids whole with minimal mastication. Pharyngeal swallow appears intact at the bedside.
1. Recommend Puree (L4) and Thin liquids
2. Aspiration precautions and supervision due to impaired safety awareness and cueing purposes
3. Small bites and slow rate
4. Crush meds into apple sauce
5. BRIM BUSTER following; monitor diet tolerance, advanced PO trials as indicated, and strategy training/education
--- NOTE | 2023-08-14 14:24 | PTCARENOTE ---
EEG could not be done pt uncooperative.
--- NOTE | 2023-08-14 15:06 | PTCARENOTE ---
Pt remains uncooperative and refusing care. can not give supp as pt throws things and hits me
--- NOTE | 2023-08-14 16:40 | PTCARENOTE ---
Pt refuse to let me scan his braclet . Hitting me
[2023-08-14] MEDS: ATIVAN 0.5 MG IV (17:20)
--- NOTE | 2023-08-14 17:29 | PTCARENOTE ---
Pt refused supp after many attempts, pt yells and hits and grabs breasts
--- NOTE | 2023-08-14 18:03 | W.PN.HOSP.TC ---
Today's Communication/Plan
-
follow labs
continue Levophed
start diet as per speech therapy
Assessment / Plan
Assessment / Plan
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
-Got Keppra load in the ER
-Continue Valproic Acid - increase the home valproic acid dose to a seizure prevention dose rather than add Keppra as a separate brand new med that could cause issues - Valproic acid will now be 500 mg BID and one 500 mg IV dose was given in the
emergency department
-Seizure precautions
-EEG was requested, but pt refused
-Check BMP, Magnesium and Calcium plus Albumin
-Per neurology: patient does not need inpatient MRI brain which can be deferred to the outpatient setting and will need outpatient neurology follow-up in approximately 4 to 6 weeks
Hypotension
-IV fluid boluses, still hypotensive started on Levophed, now up to 6
-blood cultures remain negative, lactic acid neg at 0.8
-Echo
-follow CBC and CMP
Recent stool leakage onto surgical site resulting in cellulitis
Multiple listed antibiotic allergies (PCN's, cephalosporins, carbapenems)
-Continue Levaquin and Flagyl through August 16, 2023 as per infectious disease note from August 06, 2023
-Recheck QTc on electrocardiogram
Chronic anemia
-Hgb lower than baseline (hgb initial this admission 7.6, last one from the last admission was 9.0)
Admission Hgb 4.8(most likely 4.8 was lab error as was 6.2 prior to transfusion)-->6.2-->6.6-->7.7
-Fe sat 31%, Ferritin 132
History of urinary tract infection
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
Schizophrenia -�On Valproic Acid at home
Intellectual disability
Nephrolithiasis
Bilateral brachial plexoplasty
BPH
Nephrolithiasis
GERD
DVT Prophylaxis:
Code Status: Full Code
continue in IMU
2 seizures prior to arrival needing treatment with seizure medications and hypotension needing monitoring in IMU is a high-risk encounter.
Anticipated Discharge: > 48 hours
Subjective/Interval History
-
Date of Service: August 14, 2023
Pt demanding to be allowed to eat, otherwise refusing evaluationj
Objective Data
-
Labs:
Laboratory Results
08/14/23
04:33
Sodium 143
Potassium 3.5
Chloride 111 H
Carbon Dioxide 24
BUN 18
Creatinine 0.9
Glucose 88
Calcium 7.9 L
Total Bilirubin 0.4
AST 23
ALT 12
Alkaline Phosphatase 79
Vital Signs:
Vital Signs
Temp Pulse Resp BP Pulse Ox
98.3 F 85 19 95/65 96
08/14/23 11:30 08/14/23 17:00 08/14/23 17:00 08/14/23 17:00 08/14/23 11:18
I&O
08/13/23 08/14/23 08/15/23
06:59 06:59 06:59
Intake Total 250 / 250
Balance 250 / 250
Review of Systems
-
History Source: Coordinated Provider
Respiratory: Reports No Symptoms
Cardiac: Reports No Symptoms
Abdomen/GI: Reports No Symptoms
Physical Exam
-
General: Well Developed, Well Nourished and No Apparent Distress
HEENT: Normocephalic, Atraumatic and Moist Mucous Membranes
Respiratory: Clear to Auscultation; Negative Wheezes, Rales or Rhonchi
Cardiac: Regular Rhythm and S1/S2
GI: Soft
Musculoskeletal: No Clubbing, No Cyanosis and No Edema
--- NOTE | 2023-08-14 18:15 | PTCARENOTE ---
picc line in place PCXR done. restraints removed.Pt CHG bath attempted supp , pt screming and kicking
[2023-08-14] MEDS: REMERON 15 MG PO (20:57)
[2023-08-14] MEDS: SENOKOT 17.1999999999999993 MG PO (20:57)
[2023-08-14] MEDS: HALDOL CONCENTRATE PO (20:58)
[2023-08-14] MEDS: SENOKOT-S 1 TABLET PO (20:58)
[2023-08-15] VITALS (32 sets, daily range): BP systolic 85–156; BP diastolic 59–137
--- NOTE | 2023-08-15 03:21 | PTCARENOTE ---
received patient from dayshift, pt sleeping at shift change but able to wake up and take meds. pt waxes and wanes with cooperativeness/agitation. pt can be talked down from his aggression and then sometimes cannot. pt given full bed bath at shift
change, covered in urine. if patient is told exactly what is being done he is usually cooperative. on RA- 98%. pt agitated at red light from pulse ox sensor- refuses to keep it on, pt spot checked, WNL. colostomy to left abdomen- emptied a few times
during shift. dressing to right incision dirty- cleaned and new ABD placed. pt with garbled speech. meds given with pudding as patient hates applesauce. levo gtt infusing- tried to taper down but only able to lower to 5mcg/min for MAP>65. bed alarm
on and medsitter in place. care ongoing.
[2023-08-15 03:41] LABS: Hematocrit 26.3 % (39.0-52.0); Hemoglobin 8.8 g/dL (13.0-18.0); Mean Corp Hgb Conc. 33.5 g/dL (33.0-37.0); Mean Corpuscular Hgb 27.4 pg (27.0-31.0); Mean Corpuscular Volume 81.9 fL (80.0-94.0); Mean Platelet Volume 8.4 fL (7.4-10.4); Platelet Count 633 10^3/uL (130-400); Red Blood Cell Count 3.21 10^6/uL (4.70-6.10); Red Cell Dist. Width 16.4 % (11.5-14.5); White Blood Cell Count 8.5 10^3/uL (4.8-10.8)
[2023-08-15 03:55] LABS: ALT (SGPT) 14 U/L (0-50); AST (SGOT) 29 U/L (17-59); Albumin 2.6 g/dl (3.5-5.0); Alkaline Phosphatase 100 U/L (38-126); Blood Urea Nitrogen 12 mg/dl (9-20); Calcium 8.1 mg/dl (8.4-10.2); Carbon Dioxide 26 mmol/L (22-30); Chloride 116 mmol/L (98-107); Estimated Creatinine Clearance 67 ml/min; Glucose 126 mg/dl (70-99); Potassium 3.8 mmol/L (3.5-5.1); Sodium 146 mmol/L (135-145); Total Bilirubin 0.3 mg/dl (0.2-1.3); Total Protein 6.1 g/dl (6.3-8.2); eGFR > 60.00
[2023-08-15] MEDS: HALDOL CONCENTRATE PO (07:10)
[2023-08-15] MEDS: SENOKOT 17.1999999999999993 MG PO ×2 (09:33→20:07)
[2023-08-15] MEDS: LEVAQUIN 500 MG PO (09:33)
[2023-08-15] MEDS: FLAGYL 500 MG PO ×3 (09:33→21:16)
[2023-08-15] MEDS: PROTONIX 40 MG PO (09:33)
[2023-08-15] MEDS: PEPCID 20 MG PO (09:33)
[2023-08-15] MEDS: ATIVAN 1 MG PO ×2 (09:33→20:07)
[2023-08-15] MEDS: DEPAKENE 500 MG PO ×2 (09:33→20:07)
[2023-08-15] MEDS: DESITIN MAXIMUM STRENGTH PASTE 1 APPLIC TOPICAL ×2 (09:34→20:07)
[2023-08-15] MEDS: MIRALAX 17 GRAMS PO ×2 (09:35→20:08)
[2023-08-15] MEDS: NIZORAL 2% CREAM 1 APPLIC TOPICAL ×2 (09:35→20:08)
[2023-08-15] MEDS: NEURONTIN 300 MG PO ×2 (09:38→20:07)
[2023-08-15] MEDS: HALDOL CONCENTRATE 10 MG PO ×2 (12:40→20:07)
--- NOTE | 2023-08-15 14:41 | PN.CDI ---
CDI
- -
CDI:
Physician Documentation Request
Admit Date: 08/13/23 15:55
Dear Doctor Megan,
Please review the following and provide your response in the progress notes.
Clinical Indicators:
Apartment Maintenance, 08/14
#...BMI <19. 68 y/o male admitted from [place] with seizures.
#CBW (08/14) 117 lb 4.575 oz BMI 18.4 underweight range; (08/05) 112 lb 1 oz; (07/28) 119 lb 2 oz.
Please provide an associated diagnosis related to the abnormal BMI, such as:
BMI 18.4, underweight
BMI, 18.4, cachectic
Other
BMI < or = to 19
Underweight
Weight Loss
Cachectic
Anorexia
Use of terms such as suspected, likely, concern for, or probable (associated with a specific diagnosis that is being evaluated, monitored, or treated as if it exists) are acceptable and can be coded in the inpatient setting, when documented at the
time of discharge.
Thank you,
Karly Cooley RN BSN CCDS
CDI Specialist
please contact via tiger text
Please use your independent medical judgment in providing your response.
--- NOTE | 2023-08-15 14:54 | PN.CDI ---
CDI
- -
CDI:
Physician Documentation Request
Admit Date: 08/13/23 15:55
Dear Doctor Megan,
Please review the following and provide your response in the progress notes.
Current documentation includes a diagnosis of hypotension.
Clinical Indicators:
H+P, 2/
#Hypotension
#-IV fluid boluses, if still hypotensive then will need Levophed
PN, 2/5
#Hypotension
#-IV fluid boluses, still hypotensive started on Levophed, now up to 6
Chronic anemia
#-Hgb lower than baseline (hgb initial this admission 7.6, last one from the last admission was 9.0)
#...Admission Hgb 4.8(most likely 4.8 was lab error as was 6.2 prior to transfusion)-->6.2-->6.6-->7.7
-Fe sat 31%, Ferritin 132
MAPS: Monitored
Please clarify which of the following is the most likely etiology of the above symptoms and treatment rendered:
Hypovolemic shock - indicate if due to surgery, trauma or other etiology
Hemorrhagic shock - indicate if due to surgery, trauma or other etiology
Shock, unknown type
Hypotension - indicate type/etiology, such as idiopathic, neurogenic or orthostatic, post-procedural, postoperative, due to hemodialysis, chronic, drug induced (indicate drug), etc.
Hypotension - unknown type/etiology
Other
Use of terms such as suspected, likely, concern for, or probable (associated with a specific diagnosis that is being evaluated, monitored, or treated as if it exists) are acceptable and can be coded in the inpatient setting, when documented at the
time of discharge.
Thank you,
Karly Cooley RN BSN CCDS
CDI Specialist
please contact via tiger text
Please use your independent medical judgment in providing your response.
--- NOTE | 2023-08-15 15:09 | PN.CDI ---
CDI
- -
CDI:
Physician Documentation Request
Admit Date: 08/13/23 15:55
Dear Doctor Megan,
Please review the following and provide your response in the progress notes.
Clinical Indicators:
H+P, 08/13
#Patient's repeat Hgb came back at 6.2. I ordered 1 unit PRBCs.
PN, 08/14
#Chronic anemia
#-Hgb lower than baseline (hgb initial this admission 7.6, last one from the last admission was 9.0)
#Admission Hgb 4.8(most likely 4.8 was lab error as was 6.2 prior to transfusion)
#...-->6.2-->6.6-->7.7
#-Fe sat 31%, Ferritin 132
Laboratory Tests
08/13/23 08/13/23 08/13/23
10:30 16:16 17:15
Hgb 7.6 L 4.8 L* D 6.2 L* D
Hct 23.3 L 14.0 L* 18.9 L*
08/13/23 08/14/23 08/14/23
20:54 04:33 04:33
Hgb 6.6 L* 7.7 L
Hct 19.4 L* 23.6 L
08/15/23 08/15/23
03:11 03:11
Hgb 8.8 L
Hct 26.3 L
1 unit RBCs transfused 08/13
Based on the above, please clarify, in the progress note, which of the following is the most likely type of anemia you are evaluating, monitoring and/or treating?
Acute blood loss anemia with baseline chronic anemia (Specify type)
Anemia of chronic disease - indicate if neoplastic disease, CKD or other
Chronic iron deficiency anemia due to blood loss
Precipitous drop in hematocrit
Folate deficiency anemia - indicate etiology, such as dietary, drug induced etc.
Protein deficiency anemia
Other
Use of terms such as suspected, likely, concern for, or probable (associated with a specific diagnosis that is being evaluated, monitored, or treated as if it exists) are acceptable and can be coded in the inpatient setting, when documented at the
time of discharge.
Thank you,
Karly Cooley RN BSN CCDS
CDI Specialist
please contact via tiger text
Please use your independent medical judgment in providing your response.
--- NOTE | 2023-08-15 15:16 | PN.CDI ---
CDI
- -
CDI:
Physician Documentation Request
Admit Date: 08/13/23 15:55
Dear Doctor Megan,
Please review the following and provide your response in the progress notes.
Current documentation includes a diagnosis of hypotension.
Clinical Indicators:
H+P, 08/13
#Hypotension
#-IV fluid boluses, if still hypotensive then will need Levophed
GI Consult, 08/13
#...anemia most likely related to dilution, recent surgery,
#...AOCD and the 4.8 is likely a lab error since repeat without transfusion
#...was 6.2 his hemoglobin is now stable
#...after transfusion of 1 unit of packed red blood cells but he does have hypotension
#and is undergoing workup for this including ruling out sepsis,
#...is currently on pressors but he has no signs of active GI bleeding.
PN, 08/14
#Hypotension
#-IV fluid boluses, still hypotensive started on Levophed, now up to 6
#...-blood cultures remain negative, lactic acid neg at 0.8
#Recent stool leakage onto surgical site resulting in cellulitis
#...-Continue Levaquin and Flagyl through August 16, 2023
#...as per infectious disease note from August 06, 2023
Chronic anemia
#-Hgb lower than baseline (hgb initial this admission 7.6, last one from the last admission was 9.0)
#...Admission Hgb 4.8(most likely 4.8 was lab error as was 6.2 prior to transfusion)-->6.2-->6.6-->7.7
-Fe sat 31%, Ferritin 132
MAPS: Monitored
Please clarify which of the following is the most likely etiology of the above symptoms and treatment rendered:
Septic Shock
Hypovolemic shock - indicate if due to surgery, trauma or other etiology
Hemorrhagic shock - indicate if due to surgery, trauma or other etiology
Shock, unknown type
Hypotension - indicate type/etiology, such as idiopathic, neurogenic or orthostatic, post-procedural, postoperative, due to hemodialysis, chronic, drug induced (indicate drug), etc.
Hypotension - unknown type/etiology
Other
Use of terms such as suspected, likely, concern for, or probable (associated with a specific diagnosis that is being evaluated, monitored, or treated as if it exists) are acceptable and can be coded in the inpatient setting, when documented at the
time of discharge.
Thank you,
Karly Cooley RN BSN CCDS
CDI Specialist
please contact via tiger text
Please use your independent medical judgment in providing your response.
--- NOTE | 2023-08-15 15:27 | PN.CDI ---
CDI
- -
CDI:
Physician Documentation Request
Admit Date: 08/13/23 15:55
Dear Doctor Megan,
Please review the following and provide your response in the progress notes.
Clinical Indicators:
08/14/23 07:40 (created 08/14/23 08:44) - Patient Care Note
#Pt agitated , gievn meds and apple juice. will not take Depakene,
#Called for a med sitter non available
08/14/23 14:24 - Patient Care Note
#EEG could not be done pt uncooperative.
08/14/23 15:06 - Patient Care Note
#Pt remains uncooperative and refusing care.
#...can not give supp as pt throws things and hits me
08/14/23 16:40 - Patient Care Note
#Pt refuse to let me scan his braclet . Hitting me
08/14/23 17:29 - Patient Care Note
#Pt refused supp after many attempts, pt yells and hits and grabs breasts
08/14/23 18:15 - Patient Care Note
#picc line in place PCXR done. restraints removed.Pt CHG bath attempted supp ,
#...pt screming and kicking
08/15/23 03:21 - Patient Care Note
#pt waxes and wanes with cooperativeness/agitation.
#pt can be talked down from his aggression and then sometimes cannot.
#...bed alarm on and medsitter in place. care ongoing.
Neuro, PN, 2/
#Attention Span & Concentration:
#...Awake, Alert, Interactive and
#...Other (Intellectual disability apparent, irritable, obeys simple commands)
Based on the above, please clarify what is the most likely etiology agitation, behaviors and need for med sitter........
Multifactorial Toxic Metabolic Encephalopathy due to meds, infection, metabolic derangements, intellectual disability, schizophrenia, other (please specify)
Other (please specify)
Unable to determine
Use of terms such as suspected, likely, concern for, or probable (associated with a specific diagnosis that is being evaluated, monitored, or treated as if it exists) are acceptable and can be coded in the inpatient setting, when documented at the
time of discharge.
Thank you,
Karly Cooley RN BSN CCDS
CDI Specialist
please contact via tiger text
Please use your independent medical judgment in providing your response.
--- NOTE | 2023-08-15 16:01 | PTCARENOTE ---
Addendum entered by Suzanne Milton RN 08/15/23 16:08:
Edit: patient initially refused to take liquid haldol, but then consented. See MAR for administration time.
Original Note:
Assumed care of patient at beginning of this shift from previous RN. Patient uncooperative/agitated/angry/inappropriate and shouting at times; then will be cooperative. He loudly refused his liquid haldol, dulcolax suppository and fleets enema. He
was seen by speech and is tolerating his diet; taking pills in applesauce without difficulty. See worklist for full assessment and vital signs; see MAR for med administration.
--- NOTE | 2023-08-15 17:01 | PTCARENOTE ---
Addendum entered by Suzanne Milton RN 08/15/23 18:28:
BP 108/75, MAP 86. Levophed infusion off as per ordered protocol; Dr Guzman aware, midodrine order added.
Original Note:
BP 85/63, MAP 72; levo remains at 1mcg/min with titration orders to maintain MAP >65. Reviewed with Dr Guzman who stated he will order midodrine and to give med prior to d/c of levophed.
--- NOTE | 2023-08-15 17:58 | W.PN.HOSP.TC ---
Today's Communication/Plan
-
ostomy now functioning
will request psych input as to medications
add Midodrine, attempt to wean off Levo
Once off Levo and psych medication evaluated, can hopefully be dc back to SNF
Assessment / Plan
Assessment / Plan
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
-Got Keppra load in the ER
-Continue Valproic Acid - increase the home valproic acid dose to a seizure prevention dose rather than add Keppra as a separate brand new med that could cause issues - Valproic acid will now be 500 mg BID and one 500 mg IV dose was given in the
emergency department
-Seizure precautions
-EEG was requested, but pt refused
-Per neurology: patient does not need inpatient MRI brain which can be deferred to the outpatient setting and will need outpatient neurology follow-up in approximately 4 to 6 weeks
Hypotension unclear etiology.possibly related to chronic bowel translocation, though this should be improving post colostomy, possibly slowly resolving due to pt with chronic illnesses
-IV fluid boluses, still hypotensive started on Levophed, has been decreased, but unable to stop
will add Midodrine, hopefully wean off Levophed
-blood cultures remain negative, lactic acid neg at 0.8
to complete Flagyl/Levaquin 08/16
-follow CBC and CMP
Recent stool leakage onto surgical site resulting in cellulitis
Multiple listed antibiotic allergies (PCN's, cephalosporins, carbapenems)
-Continue Levaquin and Flagyl through August 16, 2023 as per infectious disease note from August 06, 2023
Chronic anemia
Acute blood loss anemia with baseline chronic anemia, possibly exacerbated by recent surgery, appears to be stabilizing
BMI, 18.4, cachectic with albumin of 2.6
Multifactorial Toxic Metabolic Encephalopathy due to , infection, metabolic derangements, intellectual disability, schizophrenia
-Hgb lower than baseline (hgb initial this admission 7.6, last one from the last admission was 9.0)
Admission Hgb 4.8(most likely 4.8 was lab error as was 6.2 prior to transfusion)-->6.2-->6.6-->7.7-->8.8
-Fe sat 31%, Ferritin 132
History of urinary tract infection
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
Schizophrenia -�On Valproic Acid at home
Intellectual disability
Nephrolithiasis
Bilateral brachial plexoplasty
BPH
Nephrolithiasis
GERD
DVT Prophylaxis:
Code Status: Full Code
continue in IMU
will request input from Psych regarding medications
2 seizures prior to arrival needing treatment with seizure medications and hypotension needing monitoring in IMU is a high-risk encounter.
Anticipated Discharge: 24 - 48 hours
Subjective/Interval History
-
Date of Service: August 15, 2023
still with low BP
Objective Data
-
Vital Signs:
Vital Signs
Temp Pulse Resp BP Pulse Ox
97.5 F 80 21 85/63 97
08/15/23 15:45 08/15/23 16:00 08/15/23 16:00 08/15/23 16:00 08/15/23 08:22
I&O
08/14/23 08/15/23 08/16/23
06:59 06:59 06:59
Intake Total 250 / 250 240 / 240
Balance 250 / 250 240 / 240
Review of Systems
-
History Source: Coordinated Provider
Respiratory: Reports No Symptoms
Cardiac: Reports No Symptoms
Abdomen/GI: Reports No Symptoms
Psych: Reports Other (schizophrenic)
Physical Exam
-
General: Well Developed, Well Nourished, No Apparent Distress and Appears Chronically Ill
HEENT: Normocephalic, Atraumatic and Moist Mucous Membranes
Respiratory: Clear to Auscultation; Negative Wheezes, Rales or Rhonchi
Cardiac: Regular Rhythm and S1/S2
GI: Soft, Normal Bowel Sounds and Ostomy (functioning ostomy)
Musculoskeletal: No Clubbing, No Cyanosis and No Edema
Neuro: Awake, Alert and Other (schizophrenic)
Psych: Confused and Agitated
[2023-08-15] MEDS: REMERON 15 MG PO (21:16)
[2023-08-15] MEDS: SENOKOT-S 1 TABLET PO (21:16)
[2023-08-16] VITALS (10 sets, daily range): BP systolic 87–130; BP diastolic 60–97
[2023-08-16] MEDS: ATIVAN 0.5 MG IV (00:28)
--- NOTE | 2023-08-16 00:42 | PTCARENOTE ---
assumed care of patient- pt oriented to self- does not answer orientation questions appropriately. unsure if patient is just being uncooperative. pt aggressive with care, agitated and screaming at staff at times. hand tremors noted. RA 97%. pt was
noted to be screaming around 0020- noted colostomy to be leaking- appliance changed and abdominal wound cleaned and dressing changed. at this time patient noted to be getting increasingly angry, trying to kick and hit staff. IV ativan given per SEP-
pt noted to be sleeping after administration. pt took all pills with pudding without issues. medsitter at bedside. care ongoing.
[2023-08-16 04:26] LABS: Hematocrit 25.5 % (39.0-52.0); Hemoglobin 8.2 g/dL (13.0-18.0); Mean Corp Hgb Conc. 32.2 g/dL (33.0-37.0); Mean Corpuscular Hgb 26.8 pg (27.0-31.0); Mean Corpuscular Volume 83.3 fL (80.0-94.0); Mean Platelet Volume 8.5 fL (7.4-10.4); Platelet Count 486 10^3/uL (130-400); Red Blood Cell Count 3.06 10^6/uL (4.70-6.10); Red Cell Dist. Width 16.9 % (11.5-14.5); White Blood Cell Count 6.8 10^3/uL (4.8-10.8)
--- NOTE | 2023-08-16 04:27 | W.PN.UPDATE ---
Update Note
Progress Note Update
Patient off Levophed for > 8 hours. BP 92/74, MAP 80, No seizure activity. Will downgrade patient to Telemetry.
[2023-08-16 05:02] LABS: ALT (SGPT) 10 U/L (0-50); AST (SGOT) 20 U/L (17-59); Albumin 2.2 g/dl (3.5-5.0); Alkaline Phosphatase 80 U/L (38-126); Blood Urea Nitrogen 20 mg/dl (9-20); Carbon Dioxide 29 mmol/L (22-30); Chloride 112 mmol/L (98-107); Estimated Creatinine Clearance 67 ml/min; Glucose 98 mg/dl (70-99); Potassium 4.1 mmol/L (3.5-5.1); Sodium 145 mmol/L (135-145); Total Bilirubin 0.4 mg/dl (0.2-1.3); Total Protein 5.4 g/dl (6.3-8.2); eGFR > 60.00
--- NOTE | 2023-08-16 05:19 | PTCARENOTE ---
Patient received from IMU in bed; Ox1; garbled speech; bedbound; call lundberg within reach; oriented to room.
--- NOTE | 2023-08-16 05:20 | PTCARENOTE ---
pt changed to tele status- report given to shandra RN- pt transferred to 2N with all belongings without issues.
[2023-08-16] MEDS: HALDOL CONCENTRATE 10 MG PO (09:04)
[2023-08-16] MEDS: DEPAKENE 500 MG PO ×2 (09:07→20:10)
[2023-08-16] MEDS: ProAmatine 5 MG PO ×3 (09:07→17:11)
[2023-08-16] MEDS: ATIVAN 1 MG PO ×2 (09:07→20:11)
[2023-08-16] MEDS: NEURONTIN 300 MG PO ×2 (09:07→20:10)
[2023-08-16] MEDS: PROTONIX 40 MG PO (09:07)
[2023-08-16] MEDS: LEVAQUIN 500 MG PO (09:07)
[2023-08-16] MEDS: PEPCID 20 MG PO (09:08)
[2023-08-16] MEDS: MIRALAX 17 GRAMS PO ×2 (09:08→20:13)
[2023-08-16] MEDS: FLAGYL 500 MG PO ×3 (09:08→22:09)
[2023-08-16] MEDS: SENOKOT 17.1999999999999993 MG PO ×2 (09:08→20:10)
[2023-08-16] MEDS: NIZORAL SHAMPOO 120 ML TOPICAL (09:10)
[2023-08-16] MEDS: DESITIN MAXIMUM STRENGTH PASTE 1 APPLIC TOPICAL ×2 (09:33→20:12)
[2023-08-16] MEDS: NIZORAL 2% CREAM 1 APPLIC TOPICAL ×2 (09:33→20:16)
--- NOTE | 2023-08-16 10:39 | PTCARENOTE ---
pt refused fleet enema when nurse was at the bedside this morning during AM medication pass. pt states he knows there is stool but he is working on his novel and we are not going near him with an enema. this nurse will attempt later this afternoon.
--- NOTE | 2023-08-16 11:21 | CM ---
Met with Christy VELÁSQUEZ at [facility] and Lalita, risk manager at [facility] who were visiting patient. Completed initial assessment. Patient is a LTC resident of [facility] and has lived there x 10 years. He is totally dependent for care,
confused, has a history of Schizophrenia and has been in and out of [facility] hospitals for years. Last [facility] hospitalization was 10 years ago prior to [facility] admission. Patient is wheelchair dependent, No O2 requirements. Pharmacy is [facility] and PCP is Dr. Igor Raza. Discharge plan of care is to return to [facility]. `
--- NOTE | 2023-08-16 11:23 | PTOTSP ---
Speech Language Pathology
Pt seen for dysphagia tx. Sitting in recliner upon arrival. Edentulous status noted. Pt is on IDDI Level 6 Solids at [facility], but currently on IDDI Level 4 here. Pt requesting solid foods. Provided P.O. trials of thin liquids via cup/straw
and small pieces of regular solid. Pt only accepted 1 piece of solid, then stated the other pieces were at the grave site of Mazin and he wouldn't eat them. Slightly prolonged mastication noted. No overt signs of aspiration.
Recommend:
(1) Upgrade to IDDSI Level 6 Solids (Soft/Bite-Sized) and Thin liquids
(2) Aspiration precautions: sit upright, slow rate, full supervision
(3) Meds as tolerated
(4) [employer] to continue to follow
--- NOTE | 2023-08-16 12:09 | W.PN.HOSP.TC ---
Today's Communication/Plan
-
If he eats well and Hgb remains stable, potential dc to SNF next 1-2 days
Assessment / Plan
Assessment / Plan
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
-Got Keppra load in the ER
-Continue Valproic Acid - increase the home valproic acid dose to a seizure prevention dose rather than add Keppra as a separate brand new med that could cause issues - Valproic acid will now be 500 mg BID and one 500 mg IV dose was given in the
emergency department
-Seizure precautions
-EEG was requested, but pt refused
-Per neurology: patient does not need inpatient MRI brain which can be deferred to the outpatient setting and will need outpatient neurology follow-up in approximately 4 to 6 weeks
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
(unfortunately he continues to refuse the enemas)
-IV fluid boluses, no longer hypotensive and Levophed was stopped
added Midodrine, and will continue for now
-blood cultures remain negative, lactic acid neg at 0.8
to complete Flagyl/Levaquin 08/16
-follow CBC and CMP
Recent stool leakage onto surgical site resulting in cellulitis
Multiple listed antibiotic allergies (PCN's, cephalosporins, carbapenems)
- Levaquin and Flagyl stopped August 16, 2023 as per infectious disease note from August 06, 2023
Chronic anemia
Acute blood loss anemia with baseline chronic anemia, possibly exacerbated by recent surgery, appears to be stabilizing
BMI, 18.4, cachectic with albumin of 2.6, pt now appears to want to eat, diet has been advanced (now on diet he is on at [facility])
Multifactorial Toxic Metabolic Encephalopathy due to , infection, metabolic derangements, intellectual disability, schizophrenia and possible toxin translocation from stool in rectal vault
-Hgb lower than baseline (hgb initial this admission 7.6, last one from the last admission was 9.0)
Admission Hgb 4.8(most likely 4.8 was lab error as was 6.2 prior to transfusion)-->6.2-->6.6-->7.7-->8.8-->8.2
-Fe sat 31%, Ferritin 132
History of urinary tract infection
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
Schizophrenia -�On Valproic Acid at SNF
Intellectual disability
Nephrolithiasis
Bilateral brachial plexoplasty
BPH
Nephrolithiasis
GERD
DVT Prophylaxis:
Code Status: Full Code
now on reg floor
will request input from Psych regarding medications
2 seizures prior to arrival needing treatment with seizure medications and hypotension needing monitoring in IMU is a high-risk encounter.
Anticipated Discharge: 24 - 48 hours
Subjective/Interval History
-
Date of Service: August 16, 2023
Actually was a little calmer today. He continued to refuse enema (for stool in the rectal vault)
Objective Data
-
Labs:
Laboratory Results
08/16/23
04:08
WBC 6.8
Hgb 8.2 L
Hct 25.5 L
Plt Count 486 H D
Sodium 145
Potassium 4.1
Chloride 112 H
Carbon Dioxide 29
BUN 20
Creatinine 0.8
Glucose 98
Calcium 8.0 L
Total Bilirubin 0.4
AST 20
ALT 10
Alkaline Phosphatase 80
Vital Signs:
Vital Signs
Temp Pulse Resp BP Pulse Ox
98.1 F 100 18 102/82 100
08/16/23 11:19 08/16/23 11:19 08/16/23 11:19 08/16/23 11:19 08/16/23 11:19
I&O
08/15/23 08/16/23 08/17/23
06:59 06:59 06:59
Intake Total 240 / 240
Output Total 60 / 60
Balance 240 / 240 -60 / -60
Review of Systems
-
History Source: Patient and Coordinated Provider
Constitutional: Denies Fever
EENT: Reports No Symptoms Reported
Respiratory: Reports No Symptoms
Cardiac: Reports No Symptoms
Abdomen/GI: Denies Abdominal Pain
Genitourinary: Reports No Symptoms
Physical Exam
-
General: Well Developed, Well Nourished, No Apparent Distress and Appears Chronically Ill
HEENT: Normocephalic, Atraumatic and Moist Mucous Membranes
Respiratory: Clear to Auscultation; Negative Wheezes, Rales or Rhonchi
Cardiac: Regular Rhythm and S1/S2
GI: Soft, Normal Bowel Sounds and Ostomy (functioning ostomy with stool and flatus)
Musculoskeletal: No Clubbing, No Cyanosis and No Edema
Neuro: Awake, Alert and Other (schizophrenic)
Psych: Confused and Agitated (less agitated today)
--- NOTE | 2023-08-16 12:35 | CON.MD ---
Consultation - Medical
-
patient seen chart reviewed. the patient immediately told me to leave 'you are an new zealander' i asked him why he thought i was an new zealander and he said 'your cheekbones'. i explained my ancestry to him and he spent a few minutes speaking but i was
unable to follow his train of thought. at the end he told me again to leave bc i was 'an new zealander'. the patient has hx of schizophrenia . he is here bc of two witnessed seizures. he is medicated with haldol decanoate every 21 days, haldol po 10 mg
bid and there is a prn for 10 mg haldol in addition to a sunita order for ativan and a prn, gabapentin 300 mg bid remeron 15 mg q hs . he is taking depakote presumably for sz or mood stabilization (level is low at 21) as well as keppra. the patient
according to nsg with who i spoke has generally been calm and not agitated. he did refuse am enema.
medical hx patient has hx of severe constipation he now has a colostomy and continues w constipation. he has hx severe anemia w admit hgb 4.8 gi has been seeing him. he has been transfused. qtc 476. neuro consulting re sz. also hx
pyelonephritis and stones he has a arrieta, bph, falls w rhabdo, contractures, intellectual disability, ugi bleed gerd copd cervical stenosis
past psych hx schizophrenia
mental status exam very thin frail appearing gentleman who was sitting in a chair. he was not aggressive but informed me as above that he would not speak to me bc i was 'an new zealander'. speech was difficult to understand at times. thought process
disorganized clearly underlying psychosis mood is irritated affect constricted he is not suicidal insight judgment lacking
dx schizophrenia
plan he is on a very large dose of haldol. usually the use of haldol dec obviates the need for po haldol. would cut the po haldol to 5 mg bid with the hope it can be dc'ed eventually. have stopped the prn of haldol. would use ativan for
agitation. haldol in itself is constipating and is very likely contributing to his bowel distress. will check in on him tomorrow although he does not want to talk to this 'new zealander'
--- NOTE | 2023-08-16 18:25 | PTCARENOTE ---
colostomy bag changed at bedside at 1800. pt site started leaking. around staple sites is small open area with local erythema. 4x4 placed over top that site and new bag reinforced. pt incontinent of bladder and has brief in place. pt walked from
chair to doorway and back with x1 assist with rolling walker after his bag change this evening. pt tolerated ambulation and had no sob
[2023-08-16] MEDS: HALDOL CONCENTRATE 5 MG PO (20:12)
[2023-08-16] MEDS: SENOKOT-S 1 TABLET PO (22:08)
[2023-08-16] MEDS: REMERON 15 MG PO (22:09)
[2023-08-17 03:37] VITALS: BP 106/70
[2023-08-17 06:27] VITALS: BMI 18.4
[2023-08-17 08:05] VITALS: BP 131/90
[2023-08-17] MEDS: MIRALAX 17 GRAMS PO (08:29)
[2023-08-17] MEDS: PEPCID 20 MG PO (08:29)
[2023-08-17] MEDS: ProAmatine 5 MG PO ×2 (08:30→12:55)
[2023-08-17] MEDS: PROTONIX 40 MG PO (08:30)
[2023-08-17] MEDS: ATIVAN 1 MG PO (08:30)
[2023-08-17] MEDS: SENOKOT 17.1999999999999993 MG PO (08:30)
[2023-08-17] MEDS: DEPAKENE 500 MG PO (08:30)
[2023-08-17] MEDS: HALDOL CONCENTRATE 5 MG PO (08:33)
[2023-08-17] MEDS: DESITIN MAXIMUM STRENGTH PASTE 1 APPLIC TOPICAL (08:46)
[2023-08-17] MEDS: NIZORAL 2% CREAM 1 APPLIC TOPICAL (08:46)
[2023-08-17] MEDS: NEURONTIN 300 MG PO (08:47)
[2023-08-17 09:25] LABS: Hematocrit 29.2 % (39.0-52.0); Hemoglobin 9.6 g/dL (13.0-18.0); Mean Corp Hgb Conc. 32.9 g/dL (33.0-37.0); Mean Corpuscular Hgb 27.4 pg (27.0-31.0); Mean Corpuscular Volume 83.2 fL (80.0-94.0); Mean Platelet Volume 8.5 fL (7.4-10.4); Platelet Count 451 10^3/uL (130-400); Red Blood Cell Count 3.51 10^6/uL (4.70-6.10); Red Cell Dist. Width 16.6 % (11.5-14.5); White Blood Cell Count 8.4 10^3/uL (4.8-10.8)
[2023-08-17 09:51] LABS: ALT (SGPT) 12 U/L (0-50); AST (SGOT) 21 U/L (17-59); Albumin 2.6 g/dl (3.5-5.0); Alkaline Phosphatase 90 U/L (38-126); Blood Urea Nitrogen 17 mg/dl (9-20); Calcium 8.7 mg/dl (8.4-10.2); Carbon Dioxide 31 mmol/L (22-30); Chloride 104 mmol/L (98-107); Estimated Creatinine Clearance 60 ml/min; Glucose 133 mg/dl (70-99); Potassium 4.2 mmol/L (3.5-5.1); Sodium 141 mmol/L (135-145); Total Bilirubin 0.4 mg/dl (0.2-1.3); Total Protein 6.3 g/dl (6.3-8.2); eGFR > 60.00
[2023-08-17 11:08] VITALS: BP 120/50
--- NOTE | 2023-08-17 11:12 | W.PN.HOSP.TC ---
Today's Communication/Plan
-
dc to SNF
Assessment / Plan
Assessment / Plan
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
-Got Keppra load in the ER
-Continue Valproic Acid - increase the home valproic acid dose to a seizure prevention dose rather than add Keppra as a separate brand new med that could cause issues - Valproic acid will now be 500 mg BID and one 500 mg IV dose was given in the
emergency department
-Seizure precautions
-EEG was requested, but pt refused
-Per neurology: patient does not need inpatient MRI brain which can be deferred to the outpatient setting and will need outpatient neurology follow-up in approximately 4 to 6 weeks
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
fully resolved. BP 120-130/50-90 range, though will continue Midodrine for now
-IV fluid boluses, no longer hypotensive and Levophed was stopped
added Midodrine, and will continue for now
-blood cultures remain negative, lactic acid neg at 0.8
to complete Flagyl/Levaquin 08/16
-follow CBC and CMP
Recent stool leakage onto surgical site resulting in cellulitis
Multiple listed antibiotic allergies (PCN's, cephalosporins, carbapenems)
- Levaquin and Flagyl stopped August 16, 2023 as per infectious disease note from August 06, 2023
Chronic anemia
Acute blood loss anemia with baseline chronic anemia, possibly exacerbated by recent surgery, appears to be stabilizing
received 1 unit PRBC
BMI, 18.4, cachectic with albumin of 2.6, pt now appears to want to eat, diet has been advanced (now on diet he is on at [facility])
Pt now back on usual diet, hopefully will tolerate
Multifactorial Toxic Metabolic Encephalopathy due to , infection, metabolic derangements, intellectual disability, schizophrenia and possible toxin translocation from stool in rectal vault
-Hgb lower than baseline (hgb initial this admission 7.6, last one from the last admission was 9.0)
Admission Hgb 4.8(most likely 4.8 was lab error as was 6.2 prior to transfusion)-->6.2-->6.6-->7.7-->8.8-->8.2-->9.6
-Fe sat 31%, Ferritin 132
History of urinary tract infection
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
Schizophrenia -�On Valproic Acid at SNF
Intellectual disability
Nephrolithiasis
Bilateral brachial plexoplasty
BPH
Nephrolithiasis
GERD
DVT Prophylaxis:
Code Status: Full Code
now on reg floor
appreciate input from Psych regarding medications
recommending 5 mg bid of Haldol with slow tapering
dc to SNF
see dictated note
More than 30 minutes spent in discharge including
Final examination of the patient
Summarizing hospital stay
Instructions for continuing care to all relevant caregivers
Preparation of discharge records, prescriptions, and referral forms
Total time spent (in minutes): 45
Anticipated Discharge: Today
Subjective/Interval History
-
Date of Service: August 17, 2023
Calmer today. Had good passage of stool from rectum this morning, as per nursing
Objective Data
-
Labs:
Laboratory Results
08/17/23
09:11
WBC 8.4
Hgb 9.6 L
Hct 29.2 L
Plt Count 451 H
Sodium 141
Potassium 4.2
Chloride 104
Carbon Dioxide 31 H
BUN 17
Creatinine 0.9
Glucose 133 H
Calcium 8.7
Total Bilirubin 0.4
AST 21
ALT 12
Alkaline Phosphatase 90
Vital Signs:
Vital Signs
Temp Pulse Resp BP Pulse Ox
97 F 90 18 120/50 95
08/17/23 11:08 08/17/23 11:08 08/17/23 11:08 08/17/23 11:08 08/17/23 11:08
I&O
08/16/23 08/17/23 08/18/23
06:59 06:59 06:59
Intake Total 1919
Output Total 135 / 135
Balance 178 / 1784
Review of Systems
-
Unable to obtain full review of systems at this time due to: Dementia
History Source: Coordinated Provider
Constitutional: Denies Fever
EENT: Reports No Symptoms Reported
Respiratory: Reports No Symptoms
Cardiac: Reports No Symptoms
Abdomen/GI: Denies Abdominal Pain
Genitourinary: Reports No Symptoms
Physical Exam
-
General: Well Developed, Well Nourished, No Apparent Distress and Appears Chronically Ill
HEENT: Normocephalic, Atraumatic and Moist Mucous Membranes
Respiratory: Clear to Auscultation; Negative Wheezes, Rales or Rhonchi
Cardiac: Regular Rhythm and S1/S2
GI: Soft, Normal Bowel Sounds and Ostomy (functioning ostomy with stool and flatus); Negative Distended
Musculoskeletal: No Clubbing, No Cyanosis and No Edema
Neuro: Awake, Alert and Other (schizophrenic)
Psych: Confused and Agitated (less agitated today)
--- NOTE | 2023-08-17 11:18 | W.PN.UPDATE ---
Update Note
Progress Note Update
patient seen chart reviewed. spoke with nursing. the patient is cooperative although at times he can be quite surly. he refused to talk to me about bc i am 'an '. at this point my recommendation would be to decrease the haldol po to the
lowest dose possible gradually. he may do okay on decanoate alone. psych signing off. dr hernandez informed me he will be dc today. so far no ill effects noted from decrease in po haldol. he seems more alert. likely his delusions will remain
--- NOTE | 2023-08-17 13:15 | CM ---
Patient has been medically cleared for discharge back to [facility] for LTC. Admissions department notified. Ambulance transport scheduled for 1:30PM.
--- NOTE | 2023-08-17 19:11 | W.DS.TRANS ---
DC Summary - Database Report Writer
-
Discharge Instructions:
Discharge Diagnosis/Procedures Anemia, Recurrent Seizure
Diet Chop all food
Additional Diets resume preadmission diet
Activity With assistance
Driving Restrictions No driving
Bathing Restrictions None
Instructions:
Stand-Alone Forms:
Changes to Home Medications: Yes
Discharge Medications:
DC Medications w/original date entered in [facility]
acetaminophen 325 mg tablet 650 mg PO Q4HPRN PRN mild pain, fever>100 12/24/17
famotidine 20 mg tablet 20 mg PO DAILY Gastrointestinal issue 06/20/22
sorbitol 70 % solution 30 ml PO DAILYPRN PRN if no bm by 3rd day 06/20/22
gabapentin 300 mg capsule 300 mg PO Q12H Mental Health/Anxiety 01/08/23
mirtazapine 15 mg tablet 15 mg PO HS Mental Health/Anxiety 01/08/23
zinc oxide 40 % topical ointment 1 applic topical BID sacrum 01/08/23
ketoconazole 2 % shampoo 1 applic topical MOTH SCALP 06/01/23
pantoprazole 40 mg granules delayed-release for susp in packet 40 mg PO DAILY GERD 06/01/23
polyethylene glycol 3350 17 gram oral powder packet (Miralax) 17 g PO DAILY Constipation 08/13/23
haloperidol lactate 2 mg/mL oral concentrate 5 mg (2.5 mL) PO BID #120 mL 08/17/23
lorazepam 0.5 mg tablet (Ativan) 0.5 mg PO TID PRN anxiety #6 tabs 08/17/23
midodrine 5 mg tablet 5 mg PO TID@0800,1300,1800 #90 tabs 08/17/23
valproic acid 250 mg capsule 500 mg PO BID #60 caps 08/17/23
Home Medication Changes
Depakote increased to 500 mg bid (from 250 mg bid)
Midodrine 5 mg tid added, can be weaned off if BP remains adequate
Haldol will be set at 5mg bid
Pending Results: No
== END 2023-08-17 13:30 | DRG 100 ==
LOC: 2 NORTH 15:55
PROVIDERS: Radiology Diagnostic Radiology; ADMITTING PHYSICIAN Hospitalist; ATTENDING PHYSICIAN Internal Medicine; CONSULT PHYSICIAN Internal Medicine Gastroenterology; CONSULT PHYSICIAN Surgery; EMERGENCY PHYSICIAN Emergency Medicine; FAMILY PHYSICIAN Internal Medicine; OTHER PHYSICIAN Psychiatry & Neurology Psychiatry; OTHER PHYSICIAN Student in an Organized Health Care Education/Training Program
PROC: 30233N1 Transfusion of Nonautologous Red Blood Cells into Peripheral Vein, Percutaneous Approach (ICD-10-PCS; 2023-08-13)
PROC: 02HV33Z Insertion of Infusion Device into Superior Vena Cava, Percutaneous Approach (ICD-10-PCS; 2023-08-14)
DX: G40.909 Epilepsy, unspecified, not intractable, without status epilepticus (principal); G92.8 Other toxic encephalopathy; D62 Acute posthemorrhagic anemia; R64 Cachexia; Z68.1 Body mass index [BMI] 19.9 or less, adult; F20.9 Schizophrenia, unspecified; I95.9 Hypotension, unspecified; F79 Unspecified intellectual disabilities; K21.9 Gastro-esophageal reflux disease without esophagitis; N40.0 Benign prostatic hyperplasia without lower urinary tract symptoms; M48.02 Spinal stenosis, cervical region; K59.00 Constipation, unspecified; H40.9 Unspecified glaucoma; R33.9 Retention of urine, unspecified; Z87.442 Personal history of urinary calculi; Z87.440 Personal history of urinary (tract) infections; Z93.3 Colostomy status; Z90.49 Acquired absence of other specified parts of digestive tract; Z88.1 Allergy status to other antibiotic agents; Z88.0 Allergy status to penicillin; Z88.8 Allergy status to other drugs, medicaments and biological substances; Z86.010 Personal history of colon polyps
CPT/HCPCS: 70450; 71045; 74174; 80053; 80164; 81003; 81015; 82550; 82607; 82728; 82746; 82962; 83540; 83550; 83605; 83735; 84484; 85025; 85027; 85610; 86850; 86900; 86901; 86920; 87040; 87070; 87086; 92526; 92610; 93005; 96361; 96365; 96375; 99285; P9016; Q9967

== ENCOUNTER 2025-06-28 00:22 | Emergency (ER) | payer MEDICARE, OTHER, SELFPAY ==
[2025-06-28 00:24] VITALS: BP 111/62
--- NOTE | 2025-06-28 00:30 | EDRN ---
pt refusing to answer triage questions at this time, screaming 'bullshit' at this RN
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
[2025-06-28 01:18] LABS: Hematocrit 35.3 % (39.0-52.0); Hemoglobin 11.1 g/dL (13.0-18.0); Mean Corp Hgb Conc. 31.4 g/dL (33.0-37.0); Mean Corpuscular Volume 89.6 fL (80.0-94.0); Nucleated Red Blood Cells % 0 % (-); Platelet Count 322 10^3/uL (130-400); Red Cell Dist. Width 14.0 % (11.5-14.5)
[2025-06-28 01:30] LABS: ALT (SGPT) 16 U/L (0-50); AST (SGOT) 26 U/L (17-59); Albumin 4.2 g/dl (3.5-5.0); Alkaline Phosphatase 87 U/L (38-126); Blood Urea Nitrogen 26 mg/dl (9-20); Calcium 9.1 mg/dl (8.4-10.2); Carbon Dioxide 26 mmol/L (22-30); Chloride 99 mmol/L (98-107); Glucose 98 mg/dl (70-99); Potassium 4.3 mmol/L (3.5-5.1); Sodium 137 mmol/L (135-145); Total Protein 8.0 g/dl (6.3-8.2); eGFR > 60.00
[2025-06-28 01:43] LABS: Troponin I 0.014 ng/ml
--- NOTE | 2025-06-28 03:59 | EDRN ---
pt refusing to allow staff to glue laceration on eyebrow. pt swinging at staff. laceration no longer actively bleeding. will report to [facility]
--- NOTE | 2025-06-28 04:44 | EDRN ---
attempted to call report at [facility] via [phone] no response
== END 2025-06-28 04:45 ==
LOC: EMR 00:22
PROVIDERS: EMERGENCY PHYSICIAN Emergency Medicine
DX: Z04.3 Encounter for examination and observation following other accident (principal); S01.112A Laceration without foreign body of left eyelid and periocular area, initial encounter; W06.XXXA Fall from bed, initial encounter; W22.03XA Walked into furniture, initial encounter; Y92.193 Bedroom in other specified residential institution as the place of occurrence of the external cause; I49.3 Ventricular premature depolarization; F20.9 Schizophrenia, unspecified; F41.9 Anxiety disorder, unspecified; F79 Unspecified intellectual disabilities; H40.9 Unspecified glaucoma; K21.9 Gastro-esophageal reflux disease without esophagitis; K59.09 Other constipation; N40.1 Benign prostatic hyperplasia with lower urinary tract symptoms; R33.8 Other retention of urine; M48.02 Spinal stenosis, cervical region; Z86.19 Personal history of other infectious and parasitic diseases
CPT/HCPCS: 99284; 70450; 72125; 80053; 83605; 84484; 85025; 87040; 87502; 93005